=== PATIENT | female | born 1985 | race Caucasian/White ===

== ENCOUNTER → 2020-08-30 12:47 | Outpatient (BNVA) | payer OTHER, SELFPAY | PROVIDERS: PCP Internal Medicine; Visit Provider Advanced Practice Midwife ==

== ENCOUNTER 2020-11-17 19:42 | Emergency (ER) | payer OTHER, SELFPAY ==
--- NOTE | ~2020-11-17 | XR_ITS ---
EXAMINATION: XR FOOT, RIGHT CLINICAL INFORMATION: Crush injury COMPARISON: None TECHNIQUE: AP, lateral, and oblique views of the right foot. FINDINGS: The bones and soft tissues are normal. No fracture. Alignment is anatomic. Joint spaces are maintained. XR/XR foot RT 2V IMPRESSION: Normal right foot.
[2020-11-17 19:46] VITALS: BP 188/52; PULSE 67; RESP 18; TEMP 37; O2SAT 98; BMI 38.2
[2020-11-17 20:54] VITALS: BP 137/57; PULSE 62; RESP 18; TEMP 36.7; O2SAT 98
--- NOTE | 2020-11-17 21:31 | ED_ITS ---
HPI - Extremity Injury (Lower) General Chief Complaint: Extremity Injury, Lower Stated Complaint: dropped weight on right foot Time Seen by Provider: 11/17/20 21:30 Source: patient Mode of arrival: ambulatory Limitations: no limitations History of Present Illness HPI Narrative: Patient is a 35-year-old female no significant past medical history who presents after dropping an 80 lb weight on her right foot this oralia acosta. 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 She was able to ambulate all day on it with some limping. She did use some ice. She says it is now tender and swollen. Related Data Allergies Allergy/AdvReac Type Severity Reaction Status Date / Time No Known Allergies Allergy Verified 11/17/20 19:46 Review of Systems Review of Systems: Yes all other systems are reviewed and are negative [facility] Past Medical History Surgical History Hx of section Family History Family History Maternal Aunt History of breast cancer Social History Social History Alcohol intake: current Alcohol intake frequency: a few times a month Patient Tobacco Use Status: Never used Tobacco Advance Directives: No Advance Directives Information Provided: Yes Patient : No Physical Exam Vital Signs: Vital Signs: Last Vital Signs Temp 98.0 F 11/17/20 20:54 Pulse 62 11/17/20 20:54 Resp 18 11/17/20 20:54 BP 137/57 L 11/17/20 20:54 Pulse Ox 98 11/17/20 20:54 Body Mass Index 38.2 Const: General: cooperative, healthy appearing, comfortable, no acute distress and well developed Nutritional Appearance: average body habitus Orientation/consciousness: patient oriented x3 Eyes: General: appearance normal, both eyes and all related structures Resp: Effort & Inspection: normal respiratory effort and able to speak in complete sentences Neuro: General: patient oriented x3 Extrem: Other: Right lower extremity, slightly swollen, tender to palpation along the forefoot. No ecchymosis, lacerations or signs of infection on the right foot. Ankle joint full range of motion, no lacerations or ecchymosis or signs of infection. Toes NVI, slightly tender to palpation, no ecchymosis, lacerations or signs of infection noted on the right toes. Discharge Plan Discharge Clinical Impression: Contusion of foot Qualifiers: Encounter type: initial encounter Laterality: right Qualified Code(s): S90.31XA - Contusion of right foot, initial encounter Patient Disposition: Home, Self-Care Instructions: Foot Contusion (ED) Additional Instructions: As discussed, rest your but, you may use ice, elevation, it should feel better in a couple of weeks. If you notice bruising starting to develop, you can use heat his that will help the bruising go away a little bit faster. The x-ray today showed no fracture or dislocation. If your pain persists and does not get better over the next week or to, please follow-up with your primary care doctor.
== END 2020-11-17 21:34 | disposition home or self-care (01) ==
PROVIDERS: Emergency Provider Internal Medicine
DX: S90.31XA Contusion of right foot, initial encounter (principal); M79.671 Pain in right foot; Y29.XXXA Contact with blunt object, undetermined intent, initial encounter; Y93.9 Activity, unspecified; Y92.9 Unspecified place or not applicable; Y99.9 Unspecified external cause status
CPT/HCPCS: 73620; 99283

== ENCOUNTER 2020-12-03 08:23 | Outpatient (REF) | payer OTHER, SELFPAY ==
[2020-12-04 13:35] LABS: CT PCR NOT DETECTED (Not Detect.); NG PCR NOT DETECTED (Not Detect.)
[2020-12-04 14:13] LABS: BV Int Neg Control Negative (Negative); BV Int Pos Control Positive (Positive)
== END 2020-12-03 08:24 | disposition home or self-care (01) ==
LOC: HO.LAB 08:23
PROVIDERS: Visit Provider Advanced Practice Midwife
DX: N89.8 Other specified noninflammatory disorders of vagina (principal); N94.9 Unspecified condition associated with female genital organs and menstrual cycle; Z20.2 Contact with and (suspected) exposure to infections with a predominantly sexual mode of transmission
CPT/HCPCS: 81025; 87480; 87491; 87510; 87591; 87660

== ENCOUNTER 2020-12-07 13:27 | Outpatient (REF) | payer OTHER, SELFPAY ==
[2020-12-07 15:43] LABS: HCG Quantitative 723 mIU/mL
== END 2020-12-07 13:28 | disposition home or self-care (01) ==
LOC: HO.LAB 13:27
PROVIDERS: Visit Provider Advanced Practice Midwife
DX: O20.0 Threatened abortion (principal)
CPT/HCPCS: 36415; 84702

== ENCOUNTER → 2020-12-08 08:48 | Outpatient (BNVA) | payer OTHER, SELFPAY | PROVIDERS: Visit Provider Advanced Practice Midwife | DX: N92.6 Irregular menstruation, unspecified (principal); Z64.0 Problems related to unwanted pregnancy; Z87.59 Personal history of other complications of pregnancy, childbirth and the puerperium | CPT/HCPCS: 81025 ==

== ENCOUNTER 2021-03-26 14:28 | Outpatient (REF) | payer OTHER, SELFPAY ==
[2021-03-26 16:11] LABS: Binax Internal Control QC Valid; Binax Lot number: 9864; Binax Now Covid-19 Ag Negative (Negative)
== END 2021-03-26 14:29 | disposition home or self-care (01) ==
LOC: HO.LAB 14:28
PROVIDERS: Visit Provider Internal Medicine
DX: Z20.822 Contact with and (suspected) exposure to COVID-19 (principal)
CPT/HCPCS: 36415; C9803

== ENCOUNTER 2021-12-06 11:52 | Outpatient (REF) | payer OTHER, SELFPAY ==
[2021-12-06 17:23] LABS: CT PCR NOT DETECTED (Not Detect.); NG PCR NOT DETECTED (Not Detect.)
[2021-12-07 15:50] LABS: BV Int Neg Control Negative (Negative); BV Int Pos Control Positive (Positive)
[2021-12-11 23:37] LABS: HPV 16 RNA NOT DETECTED (NOT DETECTED); HPV mRNA E6/E7 rflx Detected (Not Detected)
== END 2021-12-06 11:53 | disposition home or self-care (01) ==
LOC: HO.LNP 11:52
PROVIDERS: Visit Provider Advanced Practice Midwife
DX: Z01.411 Encounter for gynecological examination (general) (routine) with abnormal findings (principal); Z11.51 Encounter for screening for human papillomavirus (HPV); N93.9 Abnormal uterine and vaginal bleeding, unspecified
CPT/HCPCS: 87480; 87491; 87510; 87591; 87624; 87625; 87660; 88142

== ENCOUNTER 2021-12-27 10:16 | Outpatient (REF) | payer OTHER, SELFPAY | END 2021-12-27 10:17 | disposition home or self-care (01) | LOC: HO.LNP 10:16 | PROVIDERS: Visit Provider Obstetrics & Gynecology | DX: Z32.02 Encounter for pregnancy test, result negative (principal); B97.7 Papillomavirus as the cause of diseases classified elsewhere | CPT/HCPCS: 57454; 81025; 88305 ==

== ENCOUNTER 2022-01-23 11:00 | Outpatient (REF) | payer OTHER, SELFPAY ==
--- NOTE | ~2022-01-23 | US_ITS ---
EXAMINATION: US PELVIS CLINICAL INFORMATION: Abnormal uterine and vaginal bleeding COMPARISON: Previous pelvic ultrasound January 2019 TECHNIQUE: Ultrasound of the pelvis is performed using both transabdominal and transvaginal transducers along with Doppler. Transvaginal imaging is performed due to inadequate visualization transabdominally. FINDINGS: The uterus is anteverted and retroflexed and measures 10.7 x 4.9 x 5.9 cm in dimension. No focal uterine lesion. Endometrial thickness is normal measuring 0.7 to 0.8 cm. The right ovary measures 3.4 x 2.8 x 2.7 cm. The left ovary measures 3.1 x 2.4 x 2.2 cm. The ovaries are normal-appearing. There is no fluid in the pelvis. US/US pelvic and transvaginal IMPRESSION: Unremarkable exam.
[2022-01-23 12:59] LABS: Hematocrit 38.6 % (37.0-47.0); Hemoglobin 12.9 g/dl (12.0-16.0); Mean Corpuscular HGB Conc 33.4 g/dl (31.0-35.0); Mean Corpuscular Volume 83.7 fL (80.0-98.0); Mean Platelet Volume 12.7 fL (9.4-12.3); Platelet Count 195 X10*3/uL (160-400); Red Blood Count 4.61 X10*6/uL (4.20-5.50); White Blood Count 7.9 X10*3/uL (4.8-10.8)
[2022-01-23 13:44] LABS: Thyroid Stimulating Hormone 1.69 uIU/mL (0.32-4.0)
== END 2022-01-23 11:01 | disposition home or self-care (01) ==
LOC: HO.US 11:00
PROVIDERS: Visit Provider Advanced Practice Midwife
DX: N93.9 Abnormal uterine and vaginal bleeding, unspecified (principal); N92.1 Excessive and frequent menstruation with irregular cycle
CPT/HCPCS: 36415; 76830; 76856; 84443; 85027

== ENCOUNTER → 2022-02-06 09:57 | Outpatient (BNVA) | payer OTHER, SELFPAY | PROVIDERS: Visit Provider Advanced Practice Midwife | DX: Z32.02 Encounter for pregnancy test, result negative (principal); Z30.011 Encounter for initial prescription of contraceptive pills; N93.9 Abnormal uterine and vaginal bleeding, unspecified; Z71.2 Person consulting for explanation of examination or test findings | CPT/HCPCS: 81025 ==

== ENCOUNTER 2022-04-23 15:11 | Emergency (ER) | payer OTHER, SELFPAY ==
--- NOTE | ~2022-04-23 | XR_ITS ---
EXAMINATION: XR SOFT TISSUE NECK CLINICAL INDICATION: Question foreign body. Feels something stuck in throat bleeding. COMPARISON: None TECHNIQUE: 2 views of the soft tissue neck were obtained. FINDINGS: Soft tissue films of the neck demonstrate a normal larynx, pharynx and upper trachea. No soft tissue swelling or opaque foreign body is demonstrated. Mild cervical spondylosis at C5-C6. XR/XR soft tissue neck IMPRESSION: 1. No radiopaque foreign body identified. 2. Mild cervical spondylosis at C5-C6.
--- NOTE | 2022-04-23 15:32 | ED_ITS ---
HPI - URI/Sore Throat General Chief Complaint: General Medical <Ninoska Leon CNP - Last Filed: 04/23/22 15:35> Stated Complaint: sharp pain throat <Ninoska Leon CNP - Last Filed: 04/23/22 15:35> Time Seen by Provider: 04/23/22 15:51 <Ninoska Leon CNP - Last Filed: 04/23/22 15:35> Source: patient <Sera Talavera NP - Last Filed: 04/23/22 18:43> Mode of arrival: ambulatory <Sera Talavera NP - Last Filed: 04/23/22 18:43> Limitations: no limitations <MARYAN Gordon Last Filed: 04/23/22 18:43> History of Present Illness HPI Narrative: 37-year-old female previously healthy who presents with complaints of discomfort and the left side of her throat after eating a Caesar salad and chili from [employer]. Patient feels like something is stuck in her throat. She is able to swallow, eat and drink with no difficulty. Patient denies any of these symptoms prior to eating <Sera Talavera NP - Last Filed: 04/23/22 18:43> Related Data Home Medications: Previous Rx's Medication Instructions Recorded desogestrel 0.15 mg-ethinyl 1 tab PO DAILY #28 tabs 02/06/22 estradiol 0.03 mg tablet (Apri) <Ninoska Leon CNP - Last Filed: 04/23/22 15:35> Allergies/Adverse Reactions: Allergies Allergy/AdvReac Type Severity Reaction Status Date / Time No Known Allergies Allergy Verified 02/06/22 10:14 <Ninoska Leon CNP - Last Filed: 04/23/22 15:35> Review of Systems Review of Systems: Yes all other systems are reviewed and are negative <MARYAN Gordon Last Filed: 04/23/22 18:43> Constitutional: Constitutional: Reports no additional constitutional complaints, Denies body ache(s), Denies chills, Denies fever(s), Denies headache(s) and Denies weakness <Sera Talavera NP - Last Filed: 04/23/22 18:43> Eyes: Eyes: Reports no additional eye complaints and Denies change in vision <Sera Talavera AERONAUTICAL ENGINEERING OFFICER - Last Filed: 04/23/22 18:43> ENT: Reports system reviewed and no additional complaints, except as documented, Denies dizziness, Denies headache(s), Denies nasal congestion, Denies nasal discharge, Denies neck pain and Reports sore throat <Sera Talavera AERONAUTICAL ENGINEERING OFFICER - Last Filed: 04/23/22 18:43> Cardiovascular: Cardiovascular: Reports no additional cardiovascular complaints, Denies chest pain, Denies leg edema and Denies dyspnea <Sera Talavera AERONAUTICAL ENGINEERING OFFICER - Last Filed: 04/23/22 18:43> Respiratory: Respiratory: Reports no additional respiratory complaints, Denies cough and Denies dyspnea <Sera Talavera AERONAUTICAL ENGINEERING OFFICER - Last Filed: 04/23/22 18:43> Gastrointestinal: Gastrointestinal: Reports no additional gastrointestinal complaints, Denies abdominal pain, Denies diarrhea, Denies nausea and Denies vomiting <Sera Talavera AERONAUTICAL ENGINEERING OFFICER - Last Filed: 04/23/22 18:43> Genitourinary: Genitourinary: Reports no additional female genitourinary complaints and Denies urinary incontinence <Sera Talavera AERONAUTICAL ENGINEERING OFFICER - Last Filed: 04/23/22 18:43> Musculoskeletal: Musculoskeletal: Reports no additional musculoskeletal complaints, Denies back pain, Denies arthralgias, Denies joint swelling, Denies neck pain, Denies numbness and Denies tingling <Sera Talavera AERONAUTICAL ENGINEERING OFFICER - Last Filed: 04/23/22 18:43> Integumentary/Breasts: Skin/Breast: Reports system reviewed and no additional complaints, except as docu and Denies rash <Sera Talavera AERONAUTICAL ENGINEERING OFFICER - Last Filed: 04/23/22 18:43> Neurologic: Reports system reviewed and no additional complaints, except as documented, Denies dizziness, Denies headache(s), Denies numbness, Denies tingling and Denies weakness <Sera Talavera AERONAUTICAL ENGINEERING OFFICER - Last Filed: 04/23/22 18:43> PMFSH Past Medical History Attestation statement: The following information was validated with the patient. <Sera Talavera NP - Last Filed: 04/23/22 18:43> Source: old records reviewed and nursing notes reviewed <Sera Talavera NP - Last Filed: 04/23/22 18:43> Medical History: Medical History Abnormal Pap smear of cervix <Ninoska Leon CNP - Last Filed: 04/23/22 15:35> Surgical History: Surgical History H/O LEEP Hx of section <Ninoska Leon CNP - Last Filed: 04/23/22 15:35> Family History Family History: Family History Maternal Aunt History of breast cancer <Ninoska Leon CNP - Last Filed: 04/23/22 15:35> Social History Social History: Social History Alcohol intake: current Alcohol intake frequency: a few times a month Patient Tobacco Use Status: Never used Tobacco Advance Directives: No Advance Directives Information Provided: Yes Sexual orientation: Straight/Heterosexual Gender identity: Female <Ninoska Leon CNP - Last Filed: 04/23/22 15:35> Physical Exam Vital Signs: Vital Signs: Last Vital Signs Temp 98.2 F 04/23/22 15:33 Pulse 59 04/23/22 15:33 Resp 18 04/23/22 15:33 BP 115/68 04/23/22 15:33 Pulse Ox 99 04/23/22 15:33 O2 Del Method 04/23/22 15:33 BMI result Body Mass Index 40.3 <Ninoska Leon CNP - Last Filed: 04/23/22 15:35> Vital Signs: Last Vital Signs Temp 98.2 F 04/23/22 15:33 Pulse 59 04/23/22 15:33 Resp 18 04/23/22 15:33 BP 115/68 04/23/22 15:33 Pulse Ox 99 04/23/22 15:33 O2 Del Method 04/23/22 15:33 BMI result Body Mass Index 40.3 <Sera Talavera NP - Last Filed: 04/23/22 18:43> Const: General: cooperative, healthy appearing, comfortable and no acute distress <Sera Talavera NP - Last Filed: 04/23/22 18:43> Orientation/consciousness: patient oriented x3 <Sera Talavera NP - Last Filed: 04/23/22 18:43> Limitations: no limitations <Sera Talavera NP - Last Filed: 04/23/22 18:43> HEENT: Head: Yes normal to inspection <Sera Talavera NP - Last Filed: 04/23/22 18:43> Ears: hearing grossly normal bilaterally and TM's normal bilaterally <Sera Talavera NP - Last Filed: 04/23/22 18:43> General nose exam: Normal external nose present <Sera Talavera NP - Last Filed: 04/23/22 18:43> Face and sinus: Yes normal facial exam <Sera Talavera NP - Last Filed: 04/23/22 18:43> Mouth: Normal oral and palatal mucosa present <Sera Talavera NP - Last Filed: 04/23/22 18:43> Throat: Yes posterior oropharynx normal, Yes uvula midline and Yes other (The right tonsil is normal.To the left tonsil slight erythema w/ no exudate) <Sera Talavera NP - Last Filed: 04/23/22 18:43> Eyes: General: appearance normal, both eyes and all related structures <Sera Talavera NP - Last Filed: 04/23/22 18:43> Pupils: Equal, round and reactive pupils present <Sera Talavera NP - Last Filed: 04/23/22 18:43> Neck: Other: No stridor. No palpable mass. <Sera Talavera NP - Last Filed: 04/23/22 18:43> Neck: Yes normal visual inspection, Yes full ROM and Yes no lymphadenopathy <Sera Talavera AERONAUTICAL ENGINEERING OFFICER - Last Filed: 04/23/22 18:43> Chest: Chest palpation & inspection: normal inspection of the chest <Sera Talavera AERONAUTICAL ENGINEERING OFFICER - Last Filed: 04/23/22 18:43> Resp: Effort & Inspection: normal respiratory effort <Sera Talavera AERONAUTICAL ENGINEERING OFFICER - Last Filed: 04/23/22 18:43> Auscultation: clear to auscultation bilaterally <Sera Talavera AERONAUTICAL ENGINEERING OFFICER - Last Filed: 04/23/22 18:43> Cardio: Rate: regular rate <Sera Talavera AERONAUTICAL ENGINEERING OFFICER - Last Filed: 04/23/22 18:43> Rhythm: regular rhythm <Sera Talavera AERONAUTICAL ENGINEERING OFFICER - Last Filed: 04/23/22 18:43> Peripheral pulses: Peripheral pulses 2+ throughout <Sera Talavera AERONAUTICAL ENGINEERING OFFICER - Last Filed: 04/23/22 18:43> GI: Inspection: Yes normal to inspection <Sera Talavera AERONAUTICAL ENGINEERING OFFICER - Last Filed: 04/23/22 18:43> Skin: General skin exam: no rashes or lesions noted <Sera Talavera AERONAUTICAL ENGINEERING OFFICER - Last Filed: 04/23/22 18:43> Neuro: General: patient oriented x3 and moves all extremities <Sera Talavera AERONAUTICAL ENGINEERING OFFICER - Last Filed: 04/23/22 18:43> Cranial nerves: Yes Equal, round and reactive pupils present <Sera Talavera AERONAUTICAL ENGINEERING OFFICER - Last Filed: 04/23/22 18:43> Cognition (Neuro): normal cognition <Sera Talavera AERONAUTICAL ENGINEERING OFFICER - Last Filed: 04/23/22 18:43> Gait exam (Neuro): Normal gait present <Sera Talavera AERONAUTICAL ENGINEERING OFFICER - Last Filed: 04/23/22 18:43> Extrem: General: Yes normal to inspection <Sera Talavera AERONAUTICAL ENGINEERING OFFICER - Last Filed: 04/23/22 18:43> Course Course Course Narrative: This is an RME: Additional HPI, ROS, PE not included below will be deferred to primary provider. Patient is a 37-year-old female who presents to the emergency department, reports sudden onset of throat pain, poking sensation, and foreign body sensation to back of throat after eating chili today. States side of her throat she appears to some sort of scratch, is concerned that she may have swallowed something while eating. Denies shortness of breath. Plan: viral testing, strep testing. <Ninoska Leon CNP - Last Filed: 0 04/23/22 15:35> Reevaluation(s) Reevaluation #1: Viral testing including strep all negative. X-ray of the soft tissue of the neck shows no acute foreign body. Patient tolerating p.o. with no difficulty. Plan for discharge home with recommendations to increase fluids and follow up with primary care as needed. Reviewed worrisome signs and symptoms of when to return to the emergency room. Comfortable plan for discharge home. <Sera Talavera NP - Last Filed: 04/23/22 18:43> Medications Administered Discontinued Medications Generic Name Dose Route Start Last Admin Trade Name Freq PRN Reason Stop Dose Admin Al Hydroxide/Mg Hydroxide 30 ml 04/23/22 16:11 04/23/22 16:24 Magnesium Hydrox/Alum Hydrox 30 Ml Oral.Susp PO 04/23/22 16:12 30 ml ONCE ONE Administration Lidocaine HCl 15 ml 04/23/22 16:11 04/23/22 16:24 Lidocaine Hcl Viscous 2 % 15 Ml Solution MUCOUS MEM 04/23/22 16:12 15 ml ONCE ONE Administration <Ninoska Leon CNP - Last Filed: 04/23/22 15:35> Medications Administered Discontinued Medications Generic Name Dose Route Start Last Admin Trade Name Freq PRN Reason Stop Dose Admin Al Hydroxide/Mg Hydroxide 30 ml 04/23/22 16:11 04/23/22 16:24 Magnesium Hydrox/Alum Hydrox 30 Ml Oral.Susp PO 04/23/22 16:12 30 ml ONCE ONE Administration Lidocaine HCl 15 ml 04/23/22 16:11 04/23/22 16:24 Lidocaine Hcl Viscous 2 % 15 Ml Solution MUCOUS MEM 04/23/22 16:12 15 ml ONCE ONE Administration <Sera Talavera NP - Last Filed: 04/23/22 18:43> Medical Decision Making Medical Decision Making MDM Narrative: 37-year-old female here with left-sided throat discomfort after eating salad and chilly just prior to arrival. Patient with a sensation of foreign body. Patient tolerating secretions with no difficulty swallowing or drooling noted. On exam patient with mild erythema to the left tonsil with no exudate or swelling noted. Uvula is midline. No stridor on exam. No palpable foreign body. Patient tolerating secretions and swallowing with no difficulty. Low concern for food impaction. Likely irritant from abrasion food source vs small food particle. Offered supportive care and reassurance that both are benign and will resolved w/o intervention. Patient quite insistent she have soft tissue x-ray although I explained to her several times that this will likely be negative. I do not believe it is necessary but patient would like imaging. Patient had viral testing done in triage as well as strep testing. Tolerated maalox/viscous lidocaine in the ER with no difficulty. <Sera Talavera NP - Last Filed: 04/23/22 18:43> Differential Diagnosis Differential Diagnoses: The differential diagnosis associated with the presentation includes <Sera Talavera NP - Last Filed: 04/23/22 18:43> less likely food impaction-patient tolerating PO and secretions with no difficulty Consider abrasion, <Sera Talavera NP - Last Filed: 04/23/22 18:43> Lab Data MDM Lab Attestation statement: I reviewed the patient's lab results. <Sera Talavera NP - Last Filed: 04/23/22 18:43> Labs: Lab Results 04/23/22 04/23/22 Range/Units 15:47 15:47 Influenza Type A (PCR) NEGATIVE (Negative) Influenza Type B (PCR) NEGATIVE (Negative) RSV RNA Qual (PCR) NEGATIVE (Negative) SARS-CoV-2 RNA (RT-PCR) NEGATIVE (Negative) S. pyogenes GrpA CYNDEE Negative (Negative) <Ninoska Leon CNP - Last Filed: 04/23/22 15:35> Lab Results 04/23/22 04/23/22 Range/Units 15:47 15:47 Influenza Type A (PCR) NEGATIVE (Negative) Influenza Type B (PCR) NEGATIVE (Negative) RSV RNA Qual (PCR) NEGATIVE (Negative) SARS-CoV-2 RNA (RT-PCR) NEGATIVE (Negative) S. pyogenes GrpA CYNDEE Negative (Negative) <Sera Talavera NP - Last Filed: 04/23/22 18:43> Independent Interpretation I performed an independent interpretation of an: Plain X-Ray <Sera Talavera NP - Last Filed: 04/23/22 18:43> Interpretation: Independently reviewed the x-ray of the soft tissue which shows no acute foreign body and I agree with the radiologist's reading <Sera Talavera NP - Last Filed: 04/23/22 18:43> Radiology Impression Discussion of test interpretation with radiology: I have reviewed the radiologist's reading. <Sera Talavera NP - Last Filed: 04/23/22 18:43> Radiologist Impression: Launch?Image [place] [address] XRay Report Signed Patient: Keily Roldan MR#: [id number] : 1985 Acct:[id number] Age/Sex: 37 / F ADM Date: 04/23/22 Loc: .ED Attending Dr: Ordering Physician: Sera Díaz NP Date of Service: 04/23/22 Procedure(s): XR soft tissue neck Accession Number(s): [id number] cc: Sera Díaz NP~ EXAMINATION: XR SOFT TISSUE NECK CLINICAL INDICATION: Question foreign body. Feels something stuck in throat bleeding. COMPARISON: None TECHNIQUE: 2 views of the soft tissue neck were obtained.? FINDINGS: Soft tissue films of the neck demonstrate a normal larynx, pharynx and upper trachea. No soft tissue swelling or opaque foreign body is demonstrated. Mild cervical spondylosis at C5-C6. XR/XR soft tissue neck IMPRESSION: 1.? No radiopaque foreign body identified. 2.? Mild cervical spondylosis at C5-C6. ? <Sera Talavera NP - Last Filed: 04/23/22 18:43> Discharge Plan Discharge Clinical Impression: Throat discomfort, Neck discomfort <Ninoska Leon CNP - Last Filed: 04/23/22 15:35> Patient Disposition: Home, Self-Care <Ninoska Leon CNP - Last Filed: 04/23/22 15:35> Instructions: Neck Pain (ED) <Ninoska Leon CNP - Last Filed: 04/23/22 15:35> Additional Instructions: You did have testing for flu, covid, rsv and strep which are all negative Your x-ray of your soft tissue of your neck shows no foreign body Please increase fluids at home. Expect some slight discomfort. This should impr ove in the next day or two. Return for difficulty swallowing fluids, difficulty breathing <Ninoska Leon CNP - Last Filed: 04/23/22 15:35> Prescriptions: No Action desogestrel-ethinyl estradiol [Apri] 0.15-0.03 mg tablet 1 tab PO DAILY Qty: 28 4RF <Ninoska Leon CNP - Last Filed: 04/23/22 15:35> Referrals: Physician,Unknown J [Primary Care Provider] - <Ninoska Leon CNP - Last Filed: 04/23/22 15:35>
[2022-04-23 15:33] VITALS: BP 115/68; PULSE 59; RESP 18; TEMP 36.8; O2SAT 99; BMI 40.3
[2022-04-23 16:00] LABS: IDNOW Serial# 6674DD1D; Strep A Nucleic Acid Negative (Negative)
[2022-04-23] MEDS: Magnesium Hydrox/Alum Hydrox 30 ML ORAL.SUSP PO (16:24)
[2022-04-23] MEDS: Lidocaine HCl Viscous 2 % 15 ML SOLUTION MUCOUS MEM (16:24)
[2022-04-23 16:28] LABS: Influenza A PCR NEGATIVE (Negative); Influenza B PCR NEGATIVE (Negative); Resp Syncy Virus RNA Qual PCR NEGATIVE (Negative); SARS COV2 PCR INHOUSE NEGATIVE (Negative)
== END 2022-04-23 18:55 | disposition home or self-care (01) ==
PROVIDERS: Nurse Practitioner Family; Emergency Provider Student in an Organized Health Care Education/Training Program
DX: R07.0 Pain in throat (principal); M54.2 Cervicalgia; R51.9 Headache, unspecified; Z20.822 Contact with and (suspected) exposure to COVID-19; Z20.828 Contact with and (suspected) exposure to other viral communicable diseases; Z79.899 Other long term (current) drug therapy
CPT/HCPCS: 0241U; 70360; 87651; 99283

== ENCOUNTER → 2022-06-05 10:17 | Outpatient (BNVA) | payer OTHER, SELFPAY | PROVIDERS: Visit Provider Advanced Practice Midwife | DX: Z13.89 Encounter for screening for other disorder (principal) ==

== ENCOUNTER 2022-07-24 10:06 | Outpatient (REF) | payer OTHER, SELFPAY | END 2022-07-24 10:07 | disposition home or self-care (01) | LOC: HO.LAB 10:06 | PROVIDERS: Visit Provider Advanced Practice Midwife | DX: N93.9 Abnormal uterine and vaginal bleeding, unspecified (principal) | CPT/HCPCS: 58100; 81025; 88305 ==

== ENCOUNTER → 2022-07-27 11:28 | Outpatient (BNVA) | payer OTHER, SELFPAY | PROVIDERS: Visit Provider Advanced Practice Midwife ==

== ENCOUNTER 2022-09-19 11:34 | Outpatient (REF) | payer OTHER, SELFPAY ==
[2022-09-19 15:47] LABS: CT PCR NOT DETECTED (Not Detect.); NG PCR NOT DETECTED (Not Detect.)
[2022-09-20 09:46] LABS: BV Int Neg Control Negative (Negative); BV Int Pos Control Positive (Positive)
== END 2022-09-19 11:35 | disposition home or self-care (01) ==
LOC: HO.LAB 11:34
PROVIDERS: Visit Provider Advanced Practice Midwife
DX: N76.0 Acute vaginitis (principal); Z20.2 Contact with and (suspected) exposure to infections with a predominantly sexual mode of transmission
CPT/HCPCS: 0353U; 87480; 87510; 87660

== ENCOUNTER 2022-09-19 11:48 | Outpatient (REF) | payer OTHER, SELFPAY | END 2022-09-19 11:49 | disposition home or self-care (01) | LOC: HO.LNP 11:48 | PROVIDERS: Visit Provider Advanced Practice Midwife | DX: Z13.89 Encounter for screening for other disorder (principal) ==

== ENCOUNTER 2022-10-03 10:24 | Outpatient (AMB) | payer OTHER, SELFPAY ==
[2022-10-03 10:41] VITALS: BP 118/76; BMI 37.0
--- NOTE | 2022-10-03 10:41 | A.OFFVIS_ITS ---
Intake Vital Signs 10/03/22 10:41 Height 5 ft 6 in Weight 229 lb BMI 37.0 BP 118/76 Intake Visit Reasons: control consult(wants pill) Intake Note: The patient agreed to use of a medical technologist hematology during this encounter. Scribed for PK Melendez by Harper Diaz medical technologist hematology, on 10/03/2022 at 10:50 am EST. Allergies No Known Allergies Allergy (Verified 10/03/22 10:42) Is last menstrual period known: Yes Last menstrual period: 10/03/22 HPI HPI Comments History of Present Illness Details She is here today for BC consult and is interested in OCP's. Is currently on menses today. She has used Apri BC in the past for short period of time, tended to forget the pill. Not interested in the Nuvaring or IUD. Patient denies any contraindications to control such as tobacco use, migraines with aura, high blood pressure, liver disease, blood clotting disorders JAIME+, DVT, and Lupus. She denies smoking. Reports treating for BV, but has recently feeling vaginal irritation over the last 2 days. [facility] Medical History Abnormal Pap smear of cervix BV (bacterial vaginosis) Surgical History H/O LEEP Hx of section Family History Maternal Aunt History of breast cancer Social History Alcohol intake: current Alcohol intake frequency: a few times a month Patient Tobacco Use Status: Never used Tobacco Sexual orientation: Straight/Heterosexual Gender identity: Female Female Reproductive History Menstrual Age of Menarche: 10 Date of last menstrual period: 10/03/22 Physical Exam Vital Signs: Last Vital Signs BP 118/76 10/03/22 10:41 BMI result Body Mass Index 37.0 Const General: cooperative, healthy appearing, comfortable, no acute distress, well developed, alert and awake Assessment & Plan Assessment & Plan (1) control counseling: Code(s): Z30.09 - Encounter for other general counseling and advice on contraception Plan: Discussed: Reviewed use, side effects and warning of OCP, including ACHES. Instructions were given to use a back up method for contraception for 7 days. Always use condoms for STD prevention. Instructed patient to take for at least 2-3 months for her body to get acclimated to it. Recommended she take pill at same time every day with food to prevent stomach upset. If she starts missing doses, she may consider switching from OCP. Instructed to use back up method for the length of the pack if she mi sses more than one dose. She will monitor her bleeding and contact the office with any concerns. She was instructed to go to ER if she develops loss of vision, severe headache that does not resolve, chest pain, difficulty breathing, abdominal pain, or severe pain or tenderness in extremity. She will call the office with any concerns. Rx sent to pharmacy. Instructed patient to start OCP within the first 5 days of her period. Return in 3 months for pill check. RX sent for vaginal irritation. Boric acid protocol reviewed. All of her questions and concerns were addressed to the best of my ability and shared decision making. She is agreeable to plan of care. (2) Vaginal irritation: Code(s): N89.8 - Other specified noninflammatory disorders of vagina Medications: New metronidazole 500 mg PO Q12H 14 tabs 0RF 7 days Coding Level of Care Code Est Pt Level 3 (29408) Diagnoses control counseling Z30.09 Vaginal irritation N89.8
== END 2022-10-03 14:30 | disposition home or self-care (01) ==
LOC: HO.HWS 10:24
PROVIDERS: Visit Provider Advanced Practice Midwife
DX: Z30.09 Encounter for other general counseling and advice on contraception (principal); N89.8 Other specified noninflammatory disorders of vagina
CPT/HCPCS: 99213

== ENCOUNTER → 2022-10-03 10:24 | Outpatient (BNVA) | payer OTHER, SELFPAY | PROVIDERS: Visit Provider Advanced Practice Midwife ==

== ENCOUNTER 2022-12-08 08:16 | Outpatient (AMB) | payer OTHER, SELFPAY ==
[2022-12-08 08:24] VITALS: BP 118/66; BMI 34.7
--- NOTE | 2022-12-08 08:24 | A.OFFVIS_ITS ---
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 Doing well with no registered respiratory technician concerns. She attempts to eat healthy and stays active with exercise. Currently sexually active,recently new intimate partner. Uses Apri for BC. Regular monthly periods that have gotten rn cvicu since starting OCP. Denies vaginal itching and irritation. STD screening offered; she accepts. Last pap smear 2021. Patient denies any contraindications to control such as tobacco use, migraines with aura, high blood pressure, liver disease, blood clotting disorders, DVT and PE. [facility], [facility] Medical History BV (bacterial vaginosis) Abnormal Pap smear of cervix Surgical History H/O LEEP Hx of section Family History (Updated 12/08/22 @ 08:38 by Amy Newsome) Maternal Aunt History of breast cancer Sister Diabetes Maternal Grandfather Diabetes Maternal Grandmother Diabetes Social History Household Members: Children Housing: House Alcohol intake: current Alcohol intake frequency: a few times a month Patient Tobacco Use Status: Never used Tobacco Current occupational status: employed Current occupation: [employer] Sexual orientation: Straight/Heterosexual Gender identity: Female Female Reproductive History Menstrual Age of Menarche: 10 control method: pills Total pregnancies: 4 Full term: 2 Number of Living Children: 2 Ab induced: 1 Ectopics: 1 Date of last pap smear: 12/08/21 Review of Systems Const All systems reviewed & are unremarkable except as noted in HPI and below Physical Exam Vital Signs: Last Vital Signs BP 118/66 12/08/22 08:24 BMI result Body Mass Index 34.7 Const General: cooperative, healthy appearing, no acute distress, well developed and alert Orientation/consciousness: patient oriented x3 HEENT Head: Yes normal to inspection Eyes General: appearance normal, both eyes and all related structures Neck Neck: Yes normal visual inspection Thyroid: Thyroid normal Chest Chest palpation & inspection: normal inspection of the chest Breast/axilla inspection: normal inspection of the breasts (no puckering, dimpling, peau de orange, retraction, discharge, masses) Breast/axilla palpation: normal palpation of the breasts Resp Effort & Inspection: normal respiratory effort GI Inspection: Yes normal to inspection Palpation (GI): Soft to palpation Rectal Exam - Female: deferred General: Yes bladder normal to palpation External Female Exam: normal external appearance and normal appearance of the urethra Speculum Exam - Vagina: normal appearance of the vagina, normal palpation and normal vaginal discharge Speculum Exam - Cervix: normal appearance of the cervix (Post LEEP appearance), normal palpation and Other cervical findings present (bled with pap) Bimanual exam- vagina & uterus: normal bimanual exam, normal palpation, uterine size normal, bladder normal to palpation and normal palpation Bimanual Exam- Adnexa, other: normal adnexae and no masses Skin General skin exam: no rashes or lesions noted Neuro General: patient oriented x3 Cognition (Neuro): normal cognition Extrem General: Yes normal to inspection Psych Attitude: cooperative Thought process: Normal thought process present Assessment & Plan Assessment & Plan (1) Encounter for annual routine gynecological examination: Code(s): Z01.419 - Encounter for gynecological examination (general) (routine) without abnormal findings Plan: Discussed: Current recommendations for pap smears per ASCCP guidelines. Breast awareness and periodic self breast exams. Encouraged yearly mammograms after age 40. Maintaining a healthy lifestyle including a well balanced diet and routine exercise. All of her questions and concerns were addressed to the best of my ability. RTO in one year for AG. (2) Potential exposure to STD: Code(s): Z20.2 - Contact with and (suspected) exposure to infections with a predominantly sexual mode of transmission (3) Surveillance of contraceptive pill: Code(s): Z30.41 - Encounter for surveillance of contraceptive pills Plan: Reviewed use, side effects and warning of OCP, including ACHES. She was instructed to go to ER if she develops loss of vision, severe headache that does not resolve, chest pain, difficulty breathing, abdominal pain, or severe pain or tenderness in extremity. She will call the office with any concerns. Orders: Orders Hepatitis B Core Antibody Today Z20.2 - Contact with and (suspected) exposure to infections with a predominantly sexual mode of transmission HIV Ab/Ag Today Z20.2 - Contact with and (suspected) exposure to infections with a predominantly sexual mode of transmission MM tomosynthesis screening BI Today Z12.31 - Encounter for screening mammogram for malignant neoplasm of breast Hepatitis C Antibody Today Z20.2 - Contact with and (suspected) exposure to infections with a predominantly sexual mode of transmission Syphilis Screen Today Z20.2 - Contact with and (suspected) exposure to infecti ons with a predominantly sexual mode of transmission Medications: New desogestrel-ethinyl estradiol 0.15-0.03 mg (Apri) 1 tab PO DAILY 90 tabs 4RF 90 days Coding Level of Care Code Est Pt Prev Care 18-39y(77390) Diagnoses Encounter for annual routine gynecological examination Z01.419 Potential exposure to STD Z20.2 Surveillance of contraceptive pill Z30.41
== END 2022-12-08 08:46 | disposition home or self-care (01) ==
LOC: HO.HWS 08:17
PROVIDERS: Visit Provider Advanced Practice Midwife
DX: Z01.419 Encounter for gynecological examination (general) (routine) without abnormal findings (principal); Z20.2 Contact with and (suspected) exposure to infections with a predominantly sexual mode of transmission; Z30.41 Encounter for surveillance of contraceptive pills
CPT/HCPCS: 99395

== ENCOUNTER 2022-12-08 08:16 | Outpatient (REF) | payer OTHER, SELFPAY ==
[2022-12-08 12:42] LABS: Syphilis Screen Nonreactive (Nonreactive)
[2022-12-08 16:16] LABS: CT PCR NOT DETECTED (Not Detect.); NG PCR NOT DETECTED (Not Detect.)
[2022-12-09 04:21] LABS: HBc Num1 0.19 S/CO (0.00-0.79); HIV AB/AG Nonreactive (Nonreactive); HIV Num 1 0.06 S/CO (0.00-0.99); Hepatitis B Core Antibody Nonreactive (Nonreactive); ~HepC Num1 0.06 S/CO (0.00-0.79); ~Hepatitis C Antibody Nonreactive (Nonreactive)
== END 2022-12-08 08:17 | disposition home or self-care (01) ==
LOC: HO.LAB 08:16
PROVIDERS: Visit Provider Advanced Practice Midwife
DX: Z01.419 Encounter for gynecological examination (general) (routine) without abnormal findings (principal); Z11.4 Encounter for screening for human immunodeficiency virus [HIV]; Z20.2 Contact with and (suspected) exposure to infections with a predominantly sexual mode of transmission; B97.7 Papillomavirus as the cause of diseases classified elsewhere
CPT/HCPCS: 0353U; 86704; 86780; 86803; 87389

== ENCOUNTER 2022-12-08 08:56 | Outpatient (REF) | payer OTHER, SELFPAY ==
[2022-12-13 07:28] LABS: HPV mRNA E6/E7 rflx Not Detected (Not Detected)
== END 2022-12-08 08:57 | disposition home or self-care (01) ==
LOC: HO.LNP 08:56
PROVIDERS: Advanced Practice Midwife; Visit Provider Advanced Practice Midwife
DX: Z12.4 Encounter for screening for malignant neoplasm of cervix (principal); Z11.51 Encounter for screening for human papillomavirus (HPV)
CPT/HCPCS: 87624; 88142

== ENCOUNTER → 2023-02-27 08:00 | Outpatient (BNV) | payer OTHER, SELFPAY | PROVIDERS: Visit Provider Radiology Diagnostic Radiology | DX: Z12.31 Encounter for screening mammogram for malignant neoplasm of breast (principal) | CPT/HCPCS: 77063; 77067 ==

== ENCOUNTER 2023-02-27 08:03 | Outpatient (REF) | payer OTHER, SELFPAY ==
--- NOTE | ~2023-02-27 | MM_ITS ---
EXAMINATION: MM SCREENING DIGITAL BREAST TOMOSYNTHESIS, BILATERAL CLINICAL INFORMATION: Screening. Asymptomatic. COMPARISON: Mammography: This is a baseline mammogram. TECHNIQUE: Digital breast tomosynthesis is performed in both the craniocaudal and mediolateral oblique views along with computer-aided detection (CAD). Synthesized 2D images are generated from the tomosynthesis. FINDINGS: There are scattered areas of fibroglandular density (ACR BI-RADS breast composition Category b). There are grouped calcifications in the skin of the lower inner quadrant of the right breast at a middle depth. These are benign. In the left breast, there are no significant masses, abnormal calcifications, or other abnormalities. MM/MM tomosynthesis screening BI IMPRESSION: No mammographic evidence of malignancy. ASSESSMENT: BI-RADS BI-RADS 1 - Negative RECOMMENDATION: Routine annual mammography screening. 1 year F/U This examination should not preclude the clinical evaluation of a suspicious palpable abnormality. This patient's information was entered into a reminder system with a target due date for their next mammogram.
== END 2023-02-27 08:04 | disposition home or self-care (01) ==
LOC: HO.MAMMO 08:03
PROVIDERS: Visit Provider Advanced Practice Midwife
DX: Z12.31 Encounter for screening mammogram for malignant neoplasm of breast (principal)
CPT/HCPCS: 77063; 77067

== ENCOUNTER 2023-04-03 12:43 | Outpatient (AMB) | payer OTHER, SELFPAY ==
--- NOTE | 2023-04-03 12:57 | MHC.OFFVIS ---
Intake Vital Signs 04/03/23 12:58 Height 5 ft 6 in Weight 217 lb BMI 35.0 BP 116/72 Intake Visit Reasons: ? 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 She reports increased discharge with odor. No pelvic pain. Denies urinary symptoms. LMP several weeks ago. She denies any risk to . PFSH Medical History BV (bacterial vaginosis) Abnormal Pap smear of cervix Surgical History H/O LEEP Hx of section Family History Maternal Aunt History of breast cancer Sister Diabetes Maternal Grandfather Diabetes Maternal Grandmother Diabetes Social History Household Members: Children Housing: House Alcohol intake: current Alcohol intake frequency: a few times a month Patient Tobacco Use Status: Never used Tobacco Current occupational status: employed Current occupation: [employer] Sexual orientation: Straight/Heterosexual Gender identity: Female Female Reproductive History Menstrual Age of Menarche: 10 Duration of menses: 6-7 days Date of last menstrual period: 03/19/23 control method: pills Total pregnancies: 4 Full term: 2 Review of Systems Const All systems reviewed & are unremarkable except as noted in HPI and below Physical Exam Vital Signs: Last Vital Signs BP 116/72 04/03/23 12:58 BMI result Body Mass Index 35.0 Const General: cooperative, healthy appearing and no acute distress Orientation/consciousness: patient oriented x3 GI Inspection: Yes normal to inspection Palpation (GI): Soft to palpation and Other GI palpation findings present (Nontender) Rectal Exam - Female: visual inspection normal General: Yes bladder normal to palpation External Female Exam: normal appearance of the urethra Speculum Exam - Vagina: normal appearance of the vagina, normal palpation and normal vaginal discharge (Thick, creamy, pale yellow ) Speculum Exam - Cervix: normal appearance of the cervix and normal palpation Bimanual exam- vagina & uterus: normal bimanual exam, normal palpation, uterine size normal, bladder normal to palpation, normal palpation, uterine shape normal and non-tender Bimanual Exam- Adnexa, other: normal adnexae Neuro General: patient oriented x3 Results AMB Urinalysis, Automated UA Leukoctes 0 Magalie/uL Last Edit by DENG Frankel on 04/03/23 13:47 UA Nitrite Negative Last Edit by Mayra Cordero Jacey on 04/03/23 13:47 UA Urobilinogen 0 mg/dL Last Edit by Mayra Cordero Jacey on 04/03/23 13:47 UA Protein 0.5 mg/dL Last Edit by Mayra Cordero Jacey on 04/03/23 13:47 UA pH 5.5 Last Edit by Mayra Cordero Jacey on 04/03/23 13:47 UA Blood 0 Konstantin/uL Last Edit by Mayra Cordero Jacey on 04/03/23 13:47 UA Specific [place] 1.030 Last Edit by Mayra Cordero Jacey on 04/03/23 13:47 UA Ketone Negative Last Edit by Mayra Cordero Jacey on 04/03/23 13:47 UA Bilirubin 1 mg/dL Last Edit by Mayra Cordero Jacey on 04/03/23 13:47 UA Glucose 0 mg/dL Last Edit by Mayra Cordero Jacey on 04/03/23 13:47 Results Reviewed Results Reviewed: Laboratory Last Values Urine pH (Auto) 5.5 04/03/23 13:46 Specific [place] (Auto) 1.030 04/03/23 13:46 Urine Protein (Auto) 0.5 mg/dL 04/03/23 13:46 Glucose (UA)(Auto) 0 mg/dL 04/03/23 13:46 Urine Ketones (Auto) Negative 04/03/23 13:46 Urine Blood (Auto) 0 Konstantin/uL 04/03/23 13:46 Urine Nitrite (Auto) Negative 04/03/23 13:46 Urine Bilirubin (Auto) 1 mg/dL 04/03/23 13:46 Urine Urobilinogen (Auto) 0 mg/dL 04/03/23 13:46 Leukocyte Esterase (Auto) 0 Magalie/uL 04/03/23 13:46 Assessment & Plan Assessment & Plan (1) Vaginal discharge: Code(s): N89.8 - Other specified noninflammatory disorders of vagina (2) Vaginal irritation: Code(s): N89.8 - Other specified noninflammatory disorders of vagina Plan Discuss: Use of condoms consistently. Offered STD blood work- declines. Await cultures for results and plan of care. Orders: Orders CT NG by PCR Today Z01.419 - Encounter for gynecological examination (general) (routine) without abnormal findings Bacterial Vaginosis Panel Today Z20.2 - Contact with and (suspected) exposure to infections with a predominantly sexual mode of transmission AMB Urinalysis Automated Today N94.9 - Unspecified condition associated with female genital organs and menstrual cycle Coding Level of Care Code Est Pt Level 3 (83127) Diagnoses Vaginal discharge N89.8 Vaginal irritation N89.8
[2023-04-03 12:58] VITALS: BP 116/72; BMI 35.0
== END 2023-04-03 14:26 | disposition home or self-care (01) ==
PROVIDERS: Visit Provider Advanced Practice Midwife
DX: N89.8 Other specified noninflammatory disorders of vagina (principal); N94.9 Unspecified condition associated with female genital organs and menstrual cycle
CPT/HCPCS: 99213

== ENCOUNTER 2023-04-03 12:43 | Outpatient (REF) | payer OTHER, SELFPAY ==
[2023-04-03 16:33] LABS: CT PCR NOT DETECTED (Not Detect.); NG PCR NOT DETECTED (Not Detect.)
[2023-04-04 09:53] LABS: BV Int Neg Control Negative (Negative); BV Int Pos Control Positive (Positive)
== END 2023-04-03 12:44 | disposition home or self-care (01) ==
LOC: HO.LAB 12:43
PROVIDERS: Visit Provider Advanced Practice Midwife
DX: Z01.419 Encounter for gynecological examination (general) (routine) without abnormal findings (principal); Z20.2 Contact with and (suspected) exposure to infections with a predominantly sexual mode of transmission
CPT/HCPCS: 0353U; 81003; 87480; 87510; 87660

== ENCOUNTER 2023-05-17 07:36 | Outpatient (AMB) | payer OTHER, SELFPAY ==
--- NOTE | 2023-05-17 07:39 | MHC.OFFVIS ---
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 She admits to missing a dose of her control, and also recent Lipo surgery, and COVID infection. She denies any pelvic pain, vaginal odors, itching or dysuria. She recently we can build a relationship with her -after separation. Currently small amount of bleeding. She denies any lightheadedness, dizziness, shortness of breath, reports some fatigue unsure if it is from her recent COVID infection. [facility] Medical History BV (bacterial vaginosis) Abnormal Pap smear of cervix Surgical History H/O LEEP Hx of section Family History Maternal Aunt History of breast cancer Sister Diabetes Maternal Grandfather Diabetes Maternal Grandmother Diabetes Social History Household Members: Children Housing: House Alcohol intake: current Alcohol intake frequency: a few times a month Patient Tobacco Use Status: Never used Tobacco Current occupational status: employed Current occupation: [employer] Sexual orientation: Straight/Heterosexual Gender identity: Female Female Reproductive History Menstrual Age of Menarche: 10 Date of last menstrual period: 04/14/23 Review of Systems Const All systems reviewed & are unremarkable except as noted in HPI and below Physical Exam Vital Signs: Last Vital Signs BP 110/70 05/17/23 07:42 BMI result Body Mass Index 34.7 Const General: cooperative, healthy appearing and no acute distress Orientation/consciousness: patient oriented x3 GI Inspection: Yes normal to inspection Palpation (GI): Soft to palpation and Other GI palpation findings present (Nontender) Rectal Exam - Female: visual inspection normal General: Yes bladder normal to palpation External Female Exam: normal appearance of the urethra Speculum Exam - Vagina: normal appearance of the vagina, normal palpation and vaginal bleeding Speculum Exam - Cervix: normal appearance of the cervix and normal palpation Bimanual exam- vagina & uterus: normal bimanual exam, normal palpation, uterine size normal, bladder normal to palpation, normal palpation, uterine shape normal and non-tender Bimanual Exam- Adnexa, other: normal adnexae OB/external & speculum: vaginal bleeding Neuro General: patient oriented x3 Results AMB Test Urine AMB Test Urine Negative Last Edit by DENG Balderas on 05/17/23 07:48 Results Reviewed Results Reviewed: Laboratory Last Values [facility]st Clinic Negative 05/17/23 07:45 Assessment & Plan Assessment & Plan (1) Breakthrough bleeding on control pills: Code(s): N92.1 - Excessive and frequent menstruation with irregular cycle Plan Discussed: Factors influencing her bleeding for the last few weeks would include missing control pills, surgery, stressors, infections including COVID. Encouraged to take control pills on time, setting cell phone alert. Observe bleeding pattern for now. Report any significant bleeding. Plan CBC check anemia. Has refills on her control pills until her annual is due in November. Continue taking control as scheduled, report any abnormal changes would require follow-up appointment consider other options for cycle control. She prefers not to have the Mirena due to weight gain in the past. BV and GC chlamydia cultures obtained. All of her questions and concerns were addressed to the best of my ability and shared decision making. She is agreeable to the plan of care. This note is constructed using voice recognition software. While every effort has been made to ensure accuracy, wharf tender helper errors may have been included. Orders: Orders AMB HCG Urine Test Today N92.6 - Irregular menstruation, unspecified Bacterial Vaginosis Panel Today N92.6 - Irregular menstruation, unspecified Complete Blood Count no Diff Today N93.9 - Abnormal uterine and vaginal bleeding, unspecified CT NG by PCR Today Z20.2 - Contact with and (suspected) exposure to infections with a predominantly sexual mode of transmission Coding Level of Care Code Est Pt Level 3 (27128) Diagnoses Breakthrough bleeding on control pills N92.1
[2023-05-17 07:42] VITALS: BP 110/70; BMI 34.7
== END 2023-05-17 08:24 | disposition home or self-care (01) ==
LOC: HO.HWS 07:36
PROVIDERS: PCP Physician Assistant; Visit Provider Advanced Practice Midwife
DX: N92.6 Irregular menstruation, unspecified (principal); N92.1 Excessive and frequent menstruation with irregular cycle
CPT/HCPCS: 99213

== ENCOUNTER 2023-05-17 07:36 | Outpatient (REF) | payer OTHER, SELFPAY ==
[2023-05-18 11:49] LABS: CT PCR NOT DETECTED (Not Detect.); NG PCR NOT DETECTED (Not Detect.)
[2023-05-18 14:21] LABS: BV Int Neg Control Negative (Negative); BV Int Pos Control Positive (Positive)
== END 2023-05-17 07:37 | disposition home or self-care (01) ==
LOC: HO.LAB 07:36
PROVIDERS: PCP Physician Assistant; Visit Provider Advanced Practice Midwife
DX: Z20.2 Contact with and (suspected) exposure to infections with a predominantly sexual mode of transmission (principal); N92.1 Excessive and frequent menstruation with irregular cycle
CPT/HCPCS: 0353U; 81025; 87480; 87510; 87660

== ENCOUNTER 2023-05-17 08:03 | Outpatient (REF) | payer OTHER, SELFPAY | END 2023-05-17 08:04 | disposition home or self-care (01) | LOC: HO.LNP 08:03 | PROVIDERS: Visit Provider Advanced Practice Midwife | DX: Z13.89 Encounter for screening for other disorder (principal) ==

== ENCOUNTER 2023-10-10 20:24 | Emergency (ER) | payer OTHER, SELFPAY | END 2023-10-10 21:53 | disposition left against medical advice (07) | PROVIDERS: Emergency Provider Emergency Medicine; PCP Physician Assistant | DX: S69.91XA Unspecified injury of right wrist, hand and finger(s), initial encounter (principal); X58.XXXA Exposure to other specified factors, initial encounter; Y93.9 Activity, unspecified; Y92.9 Unspecified place or not applicable; Y99.9 Unspecified external cause status; Z53.21 Procedure and treatment not carried out due to patient leaving prior to being seen by health care provider ==

== ENCOUNTER 2023-12-03 11:50 | Outpatient (REF) | payer OTHER, SELFPAY | END 2023-12-03 11:51 | disposition home or self-care (01) | LOC: HO.LNP 11:50 | PROVIDERS: PCP Physician Assistant; Visit Provider Obstetrics & Gynecology | DX: Z13.89 Encounter for screening for other disorder (principal) ==

== ENCOUNTER 2023-12-03 11:50 | Outpatient (AMB) | payer OTHER, SELFPAY ==
[2023-12-03 11:54] VITALS: BMI 34.5
--- NOTE | 2023-12-03 11:54 | MHC.OFFVIS ---
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 [facility] Medical History BV (bacterial vaginosis) Abnormal Pap smear of cervix Surgical History H/O LEEP Hx of section Family History Maternal Aunt History of breast cancer Sister Diabetes Maternal Grandfather Diabetes Maternal Grandmother Diabetes Social History Household Members: Children Housing: House Alcohol intake: current Alcohol intake frequency: a few times a month Patient Tobacco Use Status: Never used Tobacco Current occupational status: employed Current occupation: [employer] Sexual orientation: Straight/Heterosexual Gender identity: Female Female Reproductive History Menstrual Age of Menarche: 10 Review of Systems Const All systems reviewed & are unremarkable except as noted in HPI and below Physical Exam Vital Signs: BMI result Body Mass Index 34.5 General: Yes no CVA tenderness External Female Exam: normal external appearance and normal appearance of the urethra Speculum Exam - Vagina: normal appearance of the vagina, normal palpation, no lesions and no masses Speculum Exam - Cervix: normal appearance of the cervix, normal palpation, no lesions, no masses and nontender Bimanual exam- vagina & uterus: normal bimanual exam, normal palpation, uterine size normal, normal palpation, uterine shape normal, No Cervical tenderness present and non-tender Bimanual Exam- Adnexa, other: normal adnexae Back/Spine/Pelvis Back: no CVA tenderness Assessment & Plan Assessment & Plan (1) Screen for STD (sexually transmitted disease): Code(s): Z11.3 - Encounter for screening for infections with a predominantly sexual mode of transmission Category: Medical Plan: STD screening tests done includes: BV panel for trichomonas, GC/CT will send patient for serology std screening for HIV, RPR, Hep b s Ag, HepC Ab. Instructions given the patient to schedule a follow-up appointment for repeat serology screen in 6 months for possible false negatives. Orders: Orders Hepatitis B Surface Antigen Today Z20.2 - Contact with and (suspected) exposure to infections with a predominantly sexual mode of transmission HIV Ab/Ag Today Z20.2 - Contact with and (suspected) exposure to infections with a predominantly sexual mode of transmission Syphilis Screen Today Z20.2 - Contact with and (suspected) exposure to infections with a predominantly sexual mode of transmission CT NG by PCR Today A64 - Unspecified sexually transmitted disease Bacterial Vaginosis Panel Today A64 - Unspecified sexually transmitted disease Hepatitis C Antibody Today Z20.2 - Contact with and (suspected) exposure to infections with a predominantly sexual mode of transmission Coding Level of Care Code Est Pt Level 3 (26007) Diagnoses Screen for STD (sexually transmitted disease) Z11.3
== END 2023-12-03 12:50 | disposition home or self-care (01) ==
LOC: HO.HWS 11:50
PROVIDERS: PCP Physician Assistant; Visit Provider Obstetrics & Gynecology
DX: Z11.3 Encounter for screening for infections with a predominantly sexual mode of transmission (principal)
CPT/HCPCS: 99213

== ENCOUNTER 2023-12-03 12:08 | Outpatient (REF) | payer OTHER, SELFPAY ==
[2023-12-03 13:11] LABS: HBsAGNum1 0.27 S/CO (0.00-0.99); HIV AB/AG Nonreactive (Nonreactive); HIV Num 1 0.04 S/CO (0.00-0.99); Hepatitis B Surface Antigen Negative (Negative); ~HepC Num1 0.11 S/CO (0.00-0.79); ~Hepatitis C Antibody Nonreactive (Nonreactive)
[2023-12-03 13:18] LABS: Syphilis Screen Nonreactive (Nonreactive)
[2023-12-03 15:20] LABS: Bacterial Vaginosis PCR NEGATIVE (Negative); Candida Group PCR NOT DETECTED (Not Detect); Candida glab krusei PCR NOT DETECTED (Not Detect); Trichomonas vaginalis PCR NOT DETECTED (Not Detect)
[2023-12-03 15:50] LABS: CT PCR NOT DETECTED (Not Detect.); NG PCR NOT DETECTED (Not Detect.)
== END 2023-12-03 12:09 | disposition home or self-care (01) ==
LOC: HO.LAB 12:08
PROVIDERS: Visit Provider Obstetrics & Gynecology
DX: A64 Unspecified sexually transmitted disease (principal); Z20.2 Contact with and (suspected) exposure to infections with a predominantly sexual mode of transmission
CPT/HCPCS: 0352U; 86780; 86803; 87340; 87389; 87491; 87591

== ENCOUNTER 2024-01-31 08:48 | Outpatient (AMB) | payer OTHER, SELFPAY ==
--- NOTE | 2024-01-31 08:55 | A.OFFVIS_ITS ---
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 Doing well with no concerns. She tries to eat healthy and stays active with exercise. She has lost 75 lb and last year. Regular monthly menses, heavy 3/5 to 7 days. Used OCPs in the past but forgot dosing for several days in a row. Currently is not sexually active. She denies vaginal itching and irritation. STI screening offered; she accepts. Denies family history of ovarian or colon cancer. Family history breast cancer-maternal aunt Last pap smear 2022, negative. History of LEEP. Mammogram: 2022. [facility] Medical History BV (bacterial vaginosis) Abnormal Pap smear of cervix Surgical History H/O LEEP Hx of section Family History Maternal Aunt History of breast cancer Sister Diabetes Maternal Grandfather Diabetes Maternal Grandmother Diabetes Social History Household Members: Children Housing: House Alcohol intake: current Alcohol intake frequency: a few times a month Patient Tobacco Use Status: Never used Tobacco Current occupational status: employed Current occupation: [employer] Sexual orientation: Straight/Heterosexual Gender identity: Female Female Reproductive History Menstrual Age of Menarche: 10 Duration of menses: 6-7 days Date of last menstrual period: 01/15/24 Total pregnancies: 4 Full term: 2 Ab induced: 1 Ectopics: 1 Date of last pap smear: 12/08/22 (negative pap smear, negative hpv) Date of Mammogram: 02/27/23 (bi rad- 1) Review of Systems Const All systems reviewed & are unremarkable except as noted in HPI and below Reports as per HPI Eyes Reports no additional complaints ENT Reports no additional complaints Card Reports no additional complaints Resp Reports no additional complaints GI Reports as per [facility] and Reports no additional complaints Reports as per HPI Musc Reports no additional complaints Skin/Breast Reports as per HPI Neuro Reports no additional complaints Psych Reports no additional complaints Endo Reports no additional complaints Arnel/Lymph Reports no additional complaints Aller/Immun Reports no additional complaints Physical Exam Vital Signs: Last Vital Signs BP 124/74 01/31/24 09:02 BMI result Body Mass Index 33.9 Const General: cooperative, healthy appearing, no acute distress, well developed and alert Orientation/consciousness: patient oriented x3 HEENT Head: Yes normal to inspection Eyes General: appearance normal, both eyes and all related structures Neck Neck: Yes normal visual inspection Thyroid: Thyroid normal Chest Chest palpation & inspection: normal inspection of the chest and other (no puckering, dimpling, peau de orange, retraction, discharge, masses) Breast/axilla inspection: normal inspection of the breasts Breast/axilla palpation: normal palpation of the breasts Resp Effort & Inspection: normal respiratory effort GI Inspection: Yes normal to inspection and Yes scar Palpation (GI): Soft to palpation Rectal Exam - Female: deferred General: Yes bladder normal to palpation External Female Exam: normal external appearance and normal appearance of the urethra Speculum Exam - Vagina: normal appearance of the vagina, normal palpation and normal vaginal discharge Speculum Exam - Cervix: normal appearance of the cervix, normal palpation and Other cervical findings present (Bled slightly with Pap, post LEEP appearance) Bimanual exam- vagina & uterus: normal bimanual exam, normal palpation, uterine size normal, bladder normal to palpation, normal palpation and non-tender Bimanual Exam- Adnexa, other: no masses Skin General skin exam: no rashes or lesions noted Rashes: no rashes Neuro General: patient oriented x3 Cognition (Neuro): normal cognition Extrem General: Yes normal to inspection Psych Attitude: cooperative Thought process: Normal thought process present Assessment & Plan Assessment & Plan (1) Encounter for well woman exam with routine gynecological exam: Code(s): Z01.419 - Encounter for gynecological examination (general) (routine) without abnormal findings Category: Medical Plan Discussed: Current recommendations for pap smears per ASCCP guidelines. Pap obtained. Breast awareness and periodic breast exams. Mammogram yearly. Maintain a healthy lifestyle including a well balanced diet and routine exercise. Use condoms for STI and prevention if becomes sexually active. Return to the office if needing control in the future. Patient verbalizes understanding and agrees to the plan of care. She was given opportunity to ask questions and all questions were answered to the best of my ability. 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 This note is constructed using voice recognition software. While every effort has been made to ensure accuracy, heel cutter errors may have been included. Orders: Orders Bacterial Vaginosis Panel Today N92.0 - Excessive and frequent menstruation with regular cycle, Z20.2 - Contact with and (suspected) exposure to infections with a predominantly sexual mode of transmission CT NG by PCR Today N92.0 - Excessive and frequent menstruation with regular cycle, Z20.2 - Contact with and (suspected) exposure to infections with a predominantly sexual mode of transmission HPV High risk Today Z01.419 - Encounter for gynecological examination (general) (routine) without abnormal findings Pap Smear Today Z01.419 - Encounter for gynecological examination (general) (routine) without abnormal findings MM tomosynthesis screening BI Today Z12.31 - Encounter for screening mammogram for malignant neoplasm of breast Coding Level of Care Code Est Pt Prev Care 40-64y(05657) Diagnoses Encounter for well woman exam with routine gynecological exam Z01.419
[2024-01-31 09:02] VITALS: BP 124/74; BMI 33.9
== END 2024-01-31 09:44 | disposition home or self-care (01) ==
LOC: HO.HWS 08:48
PROVIDERS: Visit Provider Advanced Practice Midwife
DX: Z01.419 Encounter for gynecological examination (general) (routine) without abnormal findings (principal)
CPT/HCPCS: 99396

== ENCOUNTER 2024-01-31 08:48 | Outpatient (REF) | payer OTHER, SELFPAY | END 2024-01-31 08:49 | disposition home or self-care (01) | LOC: HO.LAB 08:48 | PROVIDERS: Visit Provider Advanced Practice Midwife | DX: Z13.89 Encounter for screening for other disorder (principal) ==

== ENCOUNTER 2024-01-31 09:39 | Outpatient (REF) | payer OTHER, SELFPAY ==
[2024-01-31 13:35] LABS: HPV 16,18/45 See PAP report
[2024-01-31 14:56] LABS: Bacterial Vaginosis PCR NEGATIVE (Negative); Candida Group PCR NOT DETECTED (Not Detect); Candida glab krusei PCR NOT DETECTED (Not Detect); Trichomonas vaginalis PCR NOT DETECTED (Not Detect)
[2024-01-31 17:18] LABS: CT PCR NOT DETECTED (Not Detect.); NG PCR NOT DETECTED (Not Detect.)
== END 2024-01-31 09:40 | disposition home or self-care (01) ==
LOC: HO.LNP 09:39
PROVIDERS: Visit Provider Advanced Practice Midwife
DX: Z01.419 Encounter for gynecological examination (general) (routine) without abnormal findings (principal); Z20.2 Contact with and (suspected) exposure to infections with a predominantly sexual mode of transmission; N92.0 Excessive and frequent menstruation with regular cycle; Z87.410 Personal history of cervical dysplasia; Z86.19 Personal history of other infectious and parasitic diseases
CPT/HCPCS: 0352U; 87491; 87591; 87624; 88175

== ENCOUNTER 2024-03-04 08:42 | Outpatient (REF) | payer OTHER, SELFPAY | END 2024-03-04 08:43 | disposition home or self-care (01) | LOC: HO.MAMMO 08:42 | PROVIDERS: PCP Physician Assistant Medical; Visit Provider Advanced Practice Midwife | DX: Z12.31 Encounter for screening mammogram for malignant neoplasm of breast (principal) | CPT/HCPCS: 77063; 77067 ==

== ENCOUNTER → 2024-03-04 08:45 | Outpatient (BNV) | payer OTHER, SELFPAY | PROVIDERS: PCP Physician Assistant Medical; Visit Provider Internal Medicine | DX: Z12.31 Encounter for screening mammogram for malignant neoplasm of breast (principal) | CPT/HCPCS: 77063; 77067 ==

== ENCOUNTER 2025-02-12 08:53 | Outpatient (AMB) | payer OTHER, SELFPAY ==
--- OUTSIDE RECORDS SUMMARY | 2024-11-20 03:45 | XMS_ITS ---
Author Organization [facility] [address] Address [address] [place] [address] Care Team Providers Care Dsp Engineer Name Role Phone KOKO, CAREY Unavailable [phone] Encounters Encounter Location Date Provider Diagnosis [facility] [address] [place] [address] 11/20/2024 CAREY SUTHERLAND Plan Of Treatment Next Appt Details Provider Name:CAREY SUTHERLAND, 04/06/2025 01:30:00 PM, [address], [place], [address], Provider Name:CAREY SUTHERLAND, 05/18/2025 09:30:00 AM, [address], [place], [address], Progress Notes * Keily YINDOB:1985 (39 yo F)Acc No.[id number]:11/20/2024 Patient: Eliazar Keily pizarro Provider: John SUTHERLAND PA-C :1985 A ge:39 Y S ex:Female Date:11/20/2024 Address:[id number] * Electronic signature of MARY SUTHERLAND PA-C on 02/12/2025 at 10:40 AM EST Sign off status: Pending * Provider: John SUTHERLAND PA-C Date: 0 11/20/2024 Generated for Bala jimenez/Kathleen/eTransmitting on: 1 04/14/2024 10:40 AM EST
--- OUTSIDE RECORDS SUMMARY | 2025-02-09 06:30 | XMS_ITS ---
Author Organization [facility] Address [address] [place] [address] Care Team Providers Care Improvement Director Name Role Phone CAREY SUTHERLAND Unavailable [phone] Allergies No Known Allergies REASON FOR VISIT pt here for a wt mgmt f/u, seca done Medications Medication SIG (Take, Route, Frequency, Duration) Notes Start Date End Date Status FLUoxetine HCl 10 MG Capsule 1 capsule x 1 week, then 2 cap daily Orally Once a day; Duration: 30 days 02/09/2025 Active Zepbound 10 MG/0.5ML Solution Auto-injector Inject 10mg Subcutaneous weekly; Duration: 30 days 02/09/2025 Active Wegovy 2.4 MG/0.75ML Solution Auto-injector 0.75 mL Subcutaneous weekly; Duration: 30 days 12/29/2024 Active Social History Tobacco Use: Social History Observation Description Date Details (start date - stop date) Never Smoker NA - NA Social History Tobacco Use: Social Info Question Answer Notes Tobacco Use/Smoking Are you a nonsmoker Section Notes: 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 Vital Signs Blood pressure systolic 114 mm Hg 02/10/20 25 Blood pressure diastolic 72 mm Hg 025 Heart Rate 80 /min 02/09/2025 Height 64 in 02/09/2025 Weight 216.4 lbs 02/09/2025 BMI 37.14 kg/m2 02/09/2025 Oximetry 98 % 02/09/2025 Encounters Encounter Location Date Provider Diagnosis [facility] [address] [place] [address] 02/09/2025 CAREY SUTHERLAND Obesity (BMI 30-39.9 ) E66.9 ; BMI 37.0-37.9, adult Z68.37 ; Anxiety F41.9 and Encounter for examination of blood pressure with abnormal findings Z01.31 Assessments Encounter Date Diagnosis (ICD Code) Assessment Notes Treatment Notes Treatment Clinical Notes Section Notes 02/09/2025 Obesity (BMI 30-39.9) (ICD-10 - E66.9) Keily is a 39-year-old female that presents for weight management follow-up. Reviewed [facility] holistic and medical approach to weight loss with emphasis on lifestyle modification. #Weight gain (11/15-12/17 taken from notes of Lucy Sutherland PA-C) 10/24/2022: Weight 225.5, BMI 38.7. Patient states that she followed with Dr. Allan Saucedo, and he started on compounded semaglutide in April, and she is up to 1 mg. She states that she gets it for $320 a month. Has lost 45 pounds since April but would like to come to us to see if she can get medications through health insurance. Patient states that she took her last dose on Sunday. She is scheduled for weight management consult next week. Did discuss that she can get compounded semaglutide this Sunday, she will go to the [place] office this is more convenient for her for the nursing visit, and follow-up next week for consult. Did discuss option such as phentermine versus Saxenda or Wegovy when it becomes available again this fall. 10/30/2022: Weight 223 pounds, BMI 38.27. Patient was seen for new patient visit last week. Has been taking compounded semaglutide through [facility] since March and has lost 40 pounds, but is interested in following with us to get a medication through insurance. Has been taking compounded semaglutide 1 mg, and recently had a dose last Sunday. She is interested in a medication. Did discuss Wegovy 1.7 mg which we will send to pharmacy. Patient does qualify. Continue to educate on the importance of lifestyle as well 12/14/2022: Weight 219.4 pounds, BMI 37.66. Patient congratulated on effort. Is having successful weight loss. Patient states that she is not noticing significant appetite suppression on the Wegovy 1.7 but will not increase at this time due to risk of plateauing too quickly at 2.4. She is understanding. She is also requesting a 3-month supply of the medication, but educated that that is not something that we do because we want to see patients once a month for accountability and healthy/sustainab le weight loss. Patient is understanding. We will get on body composition scale next visit.Educated on the importance of lifestyle modifications in conjunction with medication for healthy sustainable weight loss. 01/15/2023: Weight 213.5 pounds, BMI 36.64 patient has been doing very well, continuing to lose weight. Body composition scan reviewed today with positive changes. Patient taking Wegovy 1.7 mg with compliance, without any side effects. Patient is pleased with progress overall. Does admit to some life stressors, but wants to manage it with lifestyle. We will continue Wegovy 1.7 mg. 02/12/2023: Weight 216.6, BMI 37.18. Patient has gained weight since last visit. Patient expresses frustration as she has been very stressed with work, and family concerns at home. Has not been eating as well, and not been exercising as much so we are seeing weight gain. Getting back on track, will continue with Wegovy 1.7. 05/21/2023: Weight 209, BMI 35.87. Patient congratulated on effort, continue to lose slow, steady weight, showing 3 pounds of fat loss, 3 pounds of muscle loss on body scan. Patient states she is not exercising at all. States that it is very stressful for her. Set a goal of 60 minutes/week, and will slowly start increasing as she was running 3-4 times per week and feeling good with that regimen but it does not sustainable at this time. Continue with Wegovy 1.7, focus on more exercise. 07/16/23: BMI 35, weight 209 lbs. Continue Wegovy 1.7 mg subcu weekly. PA approved. Starting to go to the gym. Continue increasing protein and trying to eat earlier in day. Increase water intake to minimum 80 oz/day. 10/15/23: BMI 36, Weight 212 lb. Increase Wegovy 2.4 mg subcu weekly. Consider add on of Wellbutrin. Needs R hand x-ray to r/o schaphoid fracture. 12/10/23: BMI 35, Weight 206. Continue Wegovy 2.4 mg subcu weekly 04/15/2024: Weight: 213, BMI: 36.6. SECA reviewed. Patient encouraged to continue interval training. Discussed the importance of adequate nutrition in terms of calorie/protein intake in the setting of GLP-1 induced appetite suppression. Patient encouraged to eat small meals regularly with protein intake goal of 80 g/day. Plan to increase dose of Zepbound to 10 mg SC weekly and follow-up in 4 to 6 weeks. 06/10/24: BMI 35, weight 207. Continue Zepbound 10 mg subcu weekly. needs to get at least 80-100 grams of protein a day. Methods discussed on how to increase protein. 08/04/24: BMI 35, Weight: 205 lb. Increase to Zepbound 10 mg subcu weekly. Increase protein. Tolerating well. Consider increasing to 12.5 mg until next visit. 09/22/24: BMI 35, Weight 204 pounds. Patient will switch from Zepbound to Wegovy. Patient Wegovy 1 mg subcu weekly, then will taper up from there. We will consider adding Contrave to next visit. 12/29/24: BMI 36, weight 210. Patient is on Wegovy, will increase to 2.4 mg subcu weekly. Overall tolerating well. 02/09/2025. BMI 36, weight 215. Patient is on Wegovy, does not feel like it is stopped helping as much is Zepbound. Patient cannot afford [id number] cost Zepbound. We discussed adding topiramate. Patient wants to wait till the new year, she believes her insurance plan is changing. All questions answered to the patients satisfaction. Patient demonstrates understanding of diagnosis and treatments discussed. Follow-up at next scheduled appointment, sooner should any questions/concern s arise. Case discussed with collaborating physician Ginny Alvarez who has reviewed the assessment/plan. Chart, medications, labs, and vital signs reviewed. Dictation completed with the use of [employer]ule voice recognition software, prone to medical misidentification s and grammatical errors. All errors are unintentional. Although the practitioner does try to identify and correct errors, some may be present. Please do not hesitate to contact the practitioner for clarification. Total time spent was 30 minutes with >50% on coordination of care and patient education. 02/09/2025 BMI 37.0-37.9, adult (ICD-10 - Z68.37) Keily is a 39-year-old female that presents for weight management follow-up. Reviewed [facility] holistic and medical approach to weight loss with emphasis on lifestyle modification. #Weight gain (11/15-12/17 taken from notes of Lucy Sutherland PA-C) 10/24/2022: Weight 225.5, BMI 38.7. Patient states that she followed with Dr. Allan Saucedo, and he started on compounded semaglutide in April, and she is up to 1 mg. She states that she gets it for $320 a month. Has lost 45 pounds since April but would like to come to us to see if she can get medications through health insurance. Patient states that she took her last dose on Sunday. She is scheduled for weight management consult next week. Did discuss that she can get compounded semaglutide this Sunday, she will go to the [place] office this is more convenient for her for the nursing visit, and follow-up next week for consult. Did discuss option such as phentermine versus Saxenda or Wegovy when it becomes available again this fall. 10/30/2022: Weight 223 pounds, BMI 38.27. Patient was seen for new patient visit last week. Has been taking compounded semaglutide through [facility] since March and has lost 40 pounds, but is interested in following with us to get a medication through insurance. Has been taking compounded semaglutide 1 mg, and recently had a dose last Sunday. She is interested in a medication. Did discuss Wegovy 1.7 mg which we will send to pharmacy. Patient does qualify. Continue to educate on the importance of lifestyle as well 12/14/2022: Weight 219.4 pounds, BMI 37.66. Patient congratulated on effort. Is having successful weight loss. Patient states that she is not noticing significant appetite suppression on the Wegovy 1.7 but will not increase at this time due to risk of plateauing too quickly at 2.4. She is understanding. She is also requesting a 3-month supply of the medication, but educated that that is not something that we do because we want to see patients once a month for accountability and healthy/sustainab le weight loss. Patient is understanding. We will get on body composition scale next visit.Educated on the importance of lifestyle modifications in conjunction with medication for healthy sustainable weight loss. 01/15/2023: Weight 213.5 pounds, BMI 36.64 patient has been doing very well, continuing to lose weight. Body composition scan reviewed today with positive changes. Patient taking Wegovy 1.7 mg with compliance, without any side effects. Patient is pleased with progress overall. Does admit to some life stressors, but wants to manage it with lifestyle. We will continue Wegovy 1.7 mg. 02/12/2023: Weight 216.6, BMI 37.18. Patient has gained weight since last visit. Patient expresses frustration as she has been very stressed with work, and family concerns at home. Has not been eating as well, and not been exercising as much so we are seeing weight gain. Getting back on track, will continue with Wegovy 1.7. 05/21/2023: Weight 209, BMI 35.87. Patient congratulated on effort, continue to lose slow, steady weight, showing 3 pounds of fat loss, 3 pounds of muscle loss on body scan. Patient states she is not exercising at all. States that it is very stressful for her. Set a goal of 60 minutes/week, and will slowly start increasing as she was running 3-4 times per week and feeling good with that regimen but it does not sustainable at this time. Continue with Wegovy 1.7, focus on more exercise. 07/16/23: BMI 35, weight 209 lbs. Continue Wegovy 1.7 mg subcu weekly. PA approved. Starting to go to the gym. Continue increasing protein and trying to eat earlier in day. Increase water intake to minimum 80 oz/day. 10/15/23: BMI 36, Weight 212 lb. Increase Wegovy 2.4 mg subcu weekly. Consider add on of Wellbutrin. Needs R hand x-ray to r/o schaphoid fracture. 12/10/23: BMI 35, Weight 206. Continue Wegovy 2.4 mg subcu weekly 04/15/2024: Weight: 213, BMI: 36.6. SECA reviewed. Patient encouraged to continue interval training. Discussed the importance of adequate nutrition in terms of calorie/protein intake in the setting of GLP-1 induced appetite suppression. Patient encouraged to eat small meals regularly with protein intake goal of 80 g/day. Plan to increase dose of Zepbound to 10 mg SC weekly and follow-up in 4 to 6 weeks. 06/10/24: BMI 35, weight 207. Continue Zepbound 10 mg subcu weekly. needs to get at least 80-100 grams of protein a day. Methods discussed on how to increase protein. 08/04/24: BMI 35, Weight: 205 lb. Increase to Zepbound 10 mg subcu weekly. Increase protein. Tolerating well. Consider increasing to 12.5 mg until next visit. 09/22/24: BMI 35, Weight 204 pounds. Patient will switch from Zepbound to Wegovy. Patient Wegovy 1 mg subcu weekly, then will taper up from there. We will consider adding Contrave to next visit. 12/29/24: BMI 36, weight 210. Patient is on Wegovy, will increase to 2.4 mg subcu weekly. Overall tolerating well. 02/09/2025. BMI 36, weight 215. Patient is on Wegovy, does not feel like it is stopped helping as much is Zepbound. Patient cannot afford [id number] cost Zepbound. We discussed adding topiramate. Patient wants to wait till the new year, she believes her insurance plan is changing. All questions answered to the patients satisfaction. Patient demonstrates understanding of diagnosis and treatments discussed. Follow-up at next scheduled appointment, sooner should any questions/concern s arise. Case discussed with collaborating physician Ginny Alvarez who has reviewed the assessment/plan. Chart, medications, labs, and vital signs reviewed. Dictation completed with the use of [employer] voice recognition software, prone to medical misidentification s and grammatical errors. All errors are unintentional. Although the practitioner does try to identify and correct errors, some may be present. Please do not hesitate to contact the practitioner for clarification. Total time spent was 30 minutes with >50% on coordination of care and patient education. 02/09/2025 Anxiety (ICD-10 - F41.9) Keily is a 39-year-old female that presents for weight management follow-up. Reviewed [facility] holistic and medical approach to weight loss with emphasis on lifestyle modification. #Weight gain (11/15-12/17 taken from notes of Lucy Sutherland PA-C) 10/24/2022: Weight 225.5, BMI 38.7. Patient states that she followed with Dr. Allan Saucedo, and he started on compounded semaglutide in April, and she is up to 1 mg. She states that she gets it for $320 a month. Has lost 45 pounds since April but would like to come to us to see if she can get medications through health insurance. Patient states that she took her last dose on Sunday. She is scheduled for weight management consult next week. Did discuss that she can get compounded semaglutide this Sunday, she will go to the [place] office this is more convenient for her for the nursing visit, and follow-up next week for consult. Did discuss option such as phentermine versus Saxenda or Wegovy when it becomes available again this fall. 10/30/2022: Weight 223 pounds, BMI 38.27. Patient was seen for new patient visit last week. Has been taking compounded semaglutide through [facility] since March and has lost 40 pounds, but is interested in following with us to get a medication through insurance. Has been taking compounded semaglutide 1 mg, and recently had a dose last Sunday. She is interested in a medication. Did discuss Wegovy 1.7 mg which we will send to pharmacy. Patient does qualify. Continue to educate on the importance of lifestyle as well 12/14/2022: Weight 219.4 pounds, BMI 37.66. Patient congratulated on effort. Is having successful weight loss. Patient states that she is not noticing significant appetite suppression on the Wegovy 1.7 but will not increase at this time due to risk of plateauing too quickly at 2.4. She is understanding. She is also requesting a 3-month supply of the medication, but educated that that is not something that we do because we want to see patients once a month for accountability and healthy/sustainab le weight loss. Patient is understanding. We will get on body composition scale next visit.Educated on the importance of lifestyle modifications in conjunction with medication for healthy sustainable weight loss. 01/15/2023: Weight 213.5 pounds, BMI 36.64 patient has been doing very well, continuing to lose weight. Body composition scan reviewed today with positive changes. Patient taking Wegovy 1.7 mg with compliance, without any side effects. Patient is pleased with progress overall. Does admit to some life stressors, but wants to manage it with lifestyle. We will continue Wegovy 1.7 mg. 02/12/2023: Weight 216.6, BMI 37.18. Patient has gained weight since last visit. Patient expresses frustration as she has been very stressed with work, and family concerns at home. Has not been eating as well, and not been exercising as much so we are seeing weight gain. Getting back on track, will continue with Wegovy 1.7. 05/21/2023: Weight 209, BMI 35.87. Patient congratulated on effort, continue to lose slow, steady weight, showing 3 pounds of fat loss, 3 pounds of muscle loss on body scan. Patient states she is not exercising at all. States that it is very stressful for her. Set a goal of 60 minutes/week, and will slowly start increasing as she was running 3-4 times per week and feeling good with that regimen but it does not sustainable at this time. Continue with Wegovy 1.7, focus on more exercise. 07/16/23: BMI 35, weight 209 lbs. Continue Wegovy 1.7 mg subcu weekly. PA approved. Starting to go to the gym. Continue increasing protein and trying to eat earlier in day. Increase water intake to minimum 80 oz/day. 10/15/23: BMI 36, Weight 212 lb. Increase Wegovy 2.4 mg subcu weekly. Consider add on of Wellbutrin. Needs R hand x-ray to r/o schaphoid fracture. 12/10/23: BMI 35, Weight 206. Continue Wegovy 2.4 mg subcu weekly 04/15/2024: Weight: 213, BMI: 36.6. SECA reviewed. Patient encouraged to continue interval training. Discussed the importance of adequate nutrition in terms of calorie/protein intake in the setting of GLP-1 induced appetite suppression. Patient encouraged to eat small meals regularly with protein intake goal of 80 g/day. Plan to increase dose of Zepbound to 10 mg SC weekly and follow-up in 4 to 6 weeks. 06/10/24: BMI 35, weight 207. Continue Zepbound 10 mg subcu weekly. needs to get at least 80-100 grams of protein a day. Methods discussed on how to increase protein. 08/04/24: BMI 35, Weight: 205 lb. Increase to Zepbound 10 mg subcu weekly. Increase protein. Tolerating well. Consider increasing to 12.5 mg until next visit. 09/22/24: BMI 35, Weight 204 pounds. Patient will switch from Zepbound to Wegovy. Patient Wegovy 1 mg subcu weekly, then will taper up from there. We will consider adding Contrave to next visit. 12/29/24: BMI 36, weight 210. Patient is on Wegovy, will increase to 2.4 mg subcu weekly. Overall tolerating well. 02/09/2025. BMI 36, weight 215. Patient is on Wegovy, does not feel like it is stopped helping as much is Zepbound. Patient cannot afford [id number] cost Zepbound. We discussed adding topiramate. Patient wants to wait till the new year, she believes her insurance plan is changing. All questions answered to the patients satisfaction. Patient demonstrates understanding of diagnosis and treatments discussed. Follow-up at next scheduled appointment, sooner should any questions/concern s arise. Case discussed with collaborating physician Ginny Alvarez who has reviewed the assessment/plan. Chart, medications, labs, and vital signs reviewed. Dictation completed with the use of [employer] voice recognition software, prone to medical misidentification s and grammatical errors. All errors are unintentional. Although the practitioner does try to identify and correct errors, some may be present. Please do not hesitate to contact the practitioner for clarification. Total time spent was 30 minutes with >50% on coordination of care and patient education. 02/09/2025 Encounter for examination of blood pressure with abnormal findings (ICD-10 - Z01.31) Keily is a 39-year-old female that presents for weight management follow-up. Reviewed [facility] holistic and medical approach to weight loss with emphasis on lifestyle modification. #Weight gain (11/15-12/17 taken from notes of Lucy Sutherland PA-C) 10/24/2022: Weight 225.5, BMI 38.7. Patient states that she followed with Dr. Allan Saucedo, and he started on compounded semaglutide in April, and she is up to 1 mg. She states that she gets it for $320 a month. Has lost 45 pounds since April but would like to come to us to see if she can get medications through health insurance. Patient states that she took her last dose on Sunday. She is scheduled for weight management consult next week. Did discuss that she can get compounded semaglutide this Sunday, she will go to the [place] office this is more convenient for her for the nursing visit, and follow-up next week for consult. Did discuss option such as phentermine versus Saxenda or Wegovy when it becomes available again this fall. 10/30/2022: Weight 223 pounds, BMI 38.27. Patient was seen for new patient visit last week. Has been taking compounded semaglutide through [facility] since March and has lost 40 pounds, but is interested in following with us to get a medication through insurance. Has been taking compounded semaglutide 1 mg, and recently had a dose last Sunday. She is interested in a medication. Did discuss Wegovy 1.7 mg which we will send to pharmacy. Patient does qualify. Continue to educate on the importance of lifestyle as well 12/14/2022: Weight 219.4 pounds, BMI 37.66. Patient congratulated on effort. Is having successful weight loss. Patient states that she is not noticing significant appetite suppression on the Wegovy 1.7 but will not increase at this time due to risk of plateauing too quickly at 2.4. She is understanding. She is also requesting a 3-month supply of the medication, but educated that that is not something that we do because we want to see patients once a month for accountability and healthy/sustainab le weight loss. Patient is understanding. We will get on body composition scale next visit.Educated on the importance of lifestyle modifications in conjunction with medication for healthy sustainable weight loss. 01/15/2023: Weight 213.5 pounds, BMI 36.64 patient has been doing very well, continuing to lose weight. Body composition scan reviewed today with positive changes. Patient taking Wegovy 1.7 mg with compliance, without any side effects. Patient is pleased with progress overall. Does admit to some life stressors, but wants to manage it with lifestyle. We will continue Wegovy 1.7 mg. 02/12/2023: Weight 216.6, BMI 37.18. Patient has gained weight since last visit. Patient expresses frustration as she has been very stressed with work, and family concerns at home. Has not been eating as well, and not been exercising as much so we are seeing weight gain. Getting back on track, will continue with Wegovy 1.7. 05/21/2023: Weight 209, BMI 35.87. Patient congratulated on effort, continue to lose slow, steady weight, showing 3 pounds of fat loss, 3 pounds of muscle loss on body scan. Patient states she is not exercising at all. States that it is very stressful for her. Set a goal of 60 minutes/week, and will slowly start increasing as she was running 3-4 times per week and feeling good with that regimen but it does not sustainable at this time. Continue with Wegovy 1.7, focus on more exercise. 07/16/23: BMI 35, weight 209 lbs. Continue Wegovy 1.7 mg subcu weekly. PA approved. Starting to go to the gym. Continue increasing protein and trying to eat earlier in day. Increase water intake to minimum 80 oz/day. 10/15/23: BMI 36, Weight 212 lb. Increase Wegovy 2.4 mg subcu weekly. Consider add on of Wellbutrin. Needs R hand x-ray to r/o schaphoid fracture. 12/10/23: BMI 35, Weight 206. Continue Wegovy 2.4 mg subcu weekly 04/15/2024: Weight: 213, BMI: 36.6. SECA reviewed. Patient encouraged to continue interval training. Discussed the importance of adequate nutrition in terms of calorie/protein intake in the setting of GLP-1 induced appetite suppression. Patient encouraged to eat small meals regularly with protein intake goal of 80 g/day. Plan to increase dose of Zepbound to 10 mg SC weekly and follow-up in 4 to 6 weeks. 06/10/24: BMI 35, weight 207. Continue Zepbound 10 mg subcu weekly. needs to get at least 80-100 grams of protein a day. Methods discussed on how to increase protein. 08/04/24: BMI 35, Weight: 205 lb. Increase to Zepbound 10 mg subcu weekly. Increase protein. Tolerating well. Consider increasing to 12.5 mg until next visit. 09/22/24: BMI 35, Weight 204 pounds. Patient will switch from Zepbound to Wegovy. Patient Wegovy 1 mg subcu weekly, then will taper up from there. We will consider adding Contrave to next visit. 12/29/24: BMI 36, weight 210. Patient is on Wegovy, will increase to 2.4 mg subcu weekly. Overall tolerating well. 02/09/2025. BMI 36, weight 215. Patient is on Wegovy, does not feel like it is stopped helping as much is Zepbound. Patient cannot afford [id number] cost Zepbound. We discussed adding topiramate. Patient wants to wait till the new year, she believes her insurance plan is changing. All questions answered to the patients satisfaction. Patient demonstrates understanding of diagnosis and treatments discussed. Follow-up at next scheduled appointment, sooner should any questions/concern s arise. Case discussed with collaborating physician Ginny Alvarez who has reviewed the assessment/plan. Chart, medications, labs, and vital signs reviewed. Dictation completed with the use of Fabule voice recognition software, prone to medical misidentification s and grammatical errors. All errors are unintentional. Although the practitioner does try to identify and correct errors, some may be present. Please do not hesitate to contact the practitioner for clarification. Total time spent was 30 minutes with >50% on coordination of care and patient education. Plan Of Treatment Medication Medication Name Sig Start Date Stop Date Notes FLUoxetine HCl 10 MG Capsule 1 capsule x 1 week, then 2 cap daily Orally Once a day; Duration: 30 days 02/09/2025 Zepbound 10 MG/0.5ML Solution Auto-injector Inject 10mg Subcutaneous weekly; Duration: 30 days 02/09/2025 Wegovy 2.4 MG/0.75ML Solution Auto-injector 0.75 mL Subcutaneous weekly; Duration: 30 days 12/29/2024 Pending Test Test Name Order Date LIPID PANEL, STANDARD 02/09/2025 COMPREHENSIVE METABOLIC PANEL 02/09/2025 CBC (INCLUDES DIFF/PLT) 02/09/2025 URINALYSIS, COMPLETE 02/09/2025 HEMOGLOBIN A1c 02/09/2025 VITAMIN B12 02/09/2025 VITAMIN D,25-OH,TOTAL,IA 02/09/2025 TSH+T4F+T3Free 02/09/2025 Next Appt Details Provider Name:CAREY KOKO, 04/06/2025 01:30:00 PM, [address], [place], [address], Provider Name:CAREY SUTHERLAND, 05/18/2025 09:30:00 AM, [address], [place], [id number], History and Physical Notes * Examination Category Sub-Category Detail Notes Category Not es General Examination General: Age appropriate F, well appearing, no acute distress, speaking in full sentences without respiratory compromise. Well groomed, well developed. Skin: Warm, dry and intact. No lesions/rashes. HEENT: Normocephalic/atraumatic. EOMI intact. PERRLA. Nonenlarged Lung: Clear to auscultation bilaterally, no wheezes, rales or rhonchi. No barrel chest. Cardiac: S1 and S2 appreciated. No murmurs/rubs or gallops. DP pulses intact 2+ bilaterally. Abdomen: Soft, nontender, normoactive bowel sounds. No rebound/guarding. No CVA tenderness. Extremities: Bilateral lower extremities with no edema or rubor. MSK: Bilateral upper and lower extremities 5/5 strength with flexion/extension. Addiction Psychiatrist strength 5/5. Neuro: CN II-XI grossly intact. Steady gait with ambulation observed. Psych: Stable mood and affect . Progress Notes * Keily YINDOB:1985 (39 yo F)Acc No.[id number]:02/09/2025 Patient: Keily Scott Provider: John SUTHERLAND PA-C :1985 A ge:39 Y S ex:Female Date:02/09/2025 Address:[address], [id number] Subjective: * Chief Complaints: * 1 . Pt here for a wt mgmt f/u, seca done. * HPI: C onstitutional: Keily is a 39-year-old female that presents for weight management follow-up. Currently on Wegovy 2.4 mg subcu weekly. R eports minimal appetite suppression when compared to previous dose of Wegovy. Denies side effects including nausea, vomiting, or abdominal pain. Experiencing mild constipation, continues to move bowels at least once daily. Averages 1-2 meals/day. 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 Feels water intake is consistent. Continues to exercise daily, doing interval training at the gym. Patient reports that she feels like the Molcure worked better, but her insurance no longer covers it. * ROS: C onstitutional: no weight loss, no fever, no night sweats, no changes in sleep. Cardiovascular: No chest pain, no dyspnea on exertion, no PND, no orthopnea, no irregular pulse, no palpitations, no claudication, no diaphoresis, no claudication. Respiratory: No chronic cough, no hemoptysis, no sputum, no wheezing, no SOB, no pleuritic pain. GI, No diarrhea, no constipation, no blood in the stools, no pain associated with eating, no indigestion, no difficulty swallowing, no appetite change. Genitourinary: No painful urination, no hesitancy, no blood in the urine, no incontinence, no frequency, no urgency, no abnormal discharge. Musculoskeletal: No back pain, no joint pain, no limitations to walking and running, no joint deformity, no joint stiffness, no muscle weakness Integumentary: No new skin rash. No new changes in skin moles, no pruritis, no color change. Neurological: No history of seizures, no memory loss, no language dysfunction, no inability to concentrate, no localized weakness, no sensation loss, no confusion, no dizziness, no tremor, no numbness, no tingling. Psychiatric: no anxiety, no depression, no suicidal thoughts, feels safe at home. Endocrine: No polyuria, no polyphagia, no polydipsia. No heat/cold intolerance, no excesss thirst. Hematological: No easy bruising or bleeding, no lymph node swelling. * Medical History: * Surgical History: * Hospitalization/Major Diagno stic Procedure: * Family History: F ather: alive 63 yrs. M other: alive 63 yrs. 2 brother(s) , 2 sister(s) - healthy. 1 daughter(s) . . F amily History Verified.. Mom: IDDM Maternal aunt: Breast cancer Dad: ESRD, HTN, ETOH Sister: DM II. * Social History: T obacco Use: T obacco Use/Smoking A re you a n onsmoker. Social History Verified. 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 * Medications: T aking Wegovy 2.4 MG/0.75ML Solution Auto-injector 0.75 mL Subcutaneous weekly , Discontinued Wegovy 1.7 MG/0.75ML Solution Auto-injector INJECT 1.7MG SUBCUTANEOUSLY WEEKLY , Medication List reviewed and reconciled with the patient * Allergies: N .K.D.A. Allergies Verified. Objective: * Vitals: H R:80/min, BP:114/72mm Hg, Wt:216.4lbs, BMI:37.14Index, Ht: 64 in, Oxygen sat %:98%. * Examination: G eneral Examination: G eneral: Age appropriate F, well appearing, no acute distress, speaking in full sentences without respiratory compromise. Well groomed, well developed. Skin: Warm, dry and intact. No lesions/rashes. HEENT: Normocephalic/atraumatic. EOMI intact. PERRLA. N onenlarged Lung: Clear to auscultation bilaterally, no wheezes, rales or rhonchi. No barrel chest. Cardiac: S1 and S2 appreciated. No murmurs/rubs or gallops. DP pulses intact 2+ bilaterally. Abdomen: Soft, nontender, normoactive bowel sounds. No rebound/guarding. No CVA tenderness. Extremities: Bilateral lower extremities with no edema or rubor. MSK: Bilateral upper and lower extremities 5/5 strength with flexion/extension. Addiction Psychiatrist strength 5/5. Neuro: CN II-XI grossly intact. Steady gait with ambulation observed. Psych: Stable mood and affect . Assessment: * Assessment: 1. O besity (BMI 30-39.9) - E66.9 (Primary) 2 . B DC 37.0-37.9, adult - Z68.37 3 . A nxiety - F41.9 4 . E ncounter for examination of blood pressure with abnormal findings - Z01.31 Keily is a 39-year-old fema le that presents for weight management follow-up. Reviewed [facility] holistic and medical approach to weight loss with emphasis on lifestyle modification. #Weight gain (11/15-12/17 taken from notes of Lucy Sutherland PA-C) 10/24/2022: Weight 225.5, BMI 38.7. Patient states that she followed with Dr. Allan Saucedo, and he started on compounded semaglutide in April, and she is up to 1 mg. She states that she gets it for $320 a month. Has lost 45 pounds since April but would like to come to us to see if she can get medications through health insurance. Patient states that she took her last dose on Sunday. She is scheduled for weight management consult next week. Did discuss that she can get compounded semaglutide this Sunday, she will go to the [place] office this is more convenient for her for the nursing visit, and follow-up next week for consult. Did discuss option such as phentermine versus Saxenda or Wegovy when it becomes available again this fall. 10/30/2022: Weight 223 pounds, BMI 38.27. Patient was seen for new patient visit last week. Has been taking compounded semaglutide through [facility] since March and has lost 40 pounds, but is interested in following with us to get a medication through insurance. Has been taking compounded semaglutide 1 mg, and recently had a dose last Sunday. She is interested in a medication. Did discuss Wegovy 1.7 mg which we will send to pharmacy. Patient does qualify. Continue to educate on the importance of lifestyle as well 12/14/2022: Weight 219.4 pounds, BMI 37.66. Patient congratulated on effort. Is having successful weight loss. Patient states that she is not noticing significant appetite suppression on the Wegovy 1.7 but will not increase at this time due to risk of plateauing too quickly at 2.4. She is understanding. She is also requesting a 3- month supply of the medication, but educated that that is not something that we do because we want to see patients once a month for accountability and healthy/sustainable weight loss. Patient is understanding. We will get on body composition scale next visit.Educated on the importance of lifestyle modifications in conjunction with medication for healthy sustainable weight loss. 01/15/2023: Weight 213.5 pounds, BMI 36.64 patient has been doing very well, continuing to lose weight. Body composition scan reviewed today with positive changes. Patient taking Wegovy 1.7 mg with compliance, without any side effects. Patient is pleased with progress overall. Does admit to some life stressors, but wants to manage it with lifestyle. We will continue Wegovy 1.7 mg. 02/12/2023: Weight 216.6, BMI 37.18. Patient has gained weight since last visit. Patient expresses frustration as she has been very stressed with work, and family concerns at home. Has not been eating as well, and not been exercising as much so we are seeing weight gain. Getting back on track, will continue with Wegovy 1.7. 05/21/2023: Weight 209, BMI 35.87. Patient congratulated on effort, continue to lose slow, steady weight, showing 3 pounds of fat loss, 3 pounds of muscle loss on body scan. Patient states she is not exercising at all. States that it is very stressful for her. Set a goal of 60 minutes/week, and will slowly start increasing as she was running 3-4 times per week and feeling good with that regimen but it does not sustainable at this time. Continue with Wegovy 1.7, focus on more exercise. 07/16/23: BMI 35, weight 209 lbs. Continue Wegovy 1.7 mg subcu weekly. PA approved. Starting to go to the gym. Continue increasing protein and trying to eat earlier in day. Increase water intake to minimum 80 oz/day. 10/15/23: BMI 36, Weight 212 lb. Increase Wegovy 2.4 mg subcu weekly. Consider add on of Wellbutrin. Needs R hand x-ray to r/o schaphoid fracture. 12/10/23: BMI 35, Weight 206. Continue Wegovy 2.4 mg subcu weekly 04/15/2024: Weight: 213, BMI: 36.6. SECA reviewed. Patient encouraged to continue interval training. Discussed the importance of adequate nutrition in terms of calorie/protein intake in the setting of GLP-1 induced appetite suppression. Patient encouraged to eat small meals regularly with protein intake goal of 80 g/day. Plan to increase dose of Zepbound to 10 mg SC weekly and follow-up in 4 to 6 weeks. 06/10/24: BMI 35, weight 207. Continue Zepbound 10 mg subcu weekly. needs to get at least 80-100 grams of protein a day. Methods discussed on how to increase protein. 08/04/24: BMI 35, Weight: 205 lb. Increase to Zepbound 10 mg subcu weekly. Increase protein. Tolerating well. Consider increasing to 12.5 mg until next visit. 09/22/24: BMI 35, Weight 204 pounds. Patient will switch from Zepbound to Wegovy. Patient Wegovy 1 mg subcu weekly, then will taper up from there. We will consider adding Contrave to next visit. 12/29/24: BMI 36, weight 210. Patient is on Wegovy, will increase to 2.4 mg subcu weekly. Overall tolerating well. 02/09/2025. BMI 36, weight 215. Patient is on Wegovy, does not feel like it is stopped helping as much is Zepbound. Patient cannot afford [id number] cost Zepbound. We discussed adding topiramate. Patient wants to wait till the new year, she believes her insurance plan is changing. All questions answered to the patients satisfaction. Patient demonstrates understanding of diagnosis and treatments discussed. Follow-up at next scheduled appointment, sooner should any questions/concerns arise. Case discussed with collaborating physician Ginny Alvarez who has reviewed the assessment/plan. Chart, medications, labs, and vital signs reviewed. Dictation completed with the use of [employer]ule voice recognition software, prone to medical misidentifications and grammatical errors. All errors are unintentional. Although the practitioner does try to identify and correct errors, some may be present. Please do not hesitate to contact the practitioner for clarification. Total time spent was 30 minutes with >50% on coordination of care and patient education. Plan: * Treatment: * Labs: * L ab: HEMOGLOBIN A1c L ab: VITAMIN D,25-OH,TOTAL,IA L ab: URINALYSIS, COMPLETE L ab: TSH+T4F+T3Free L ab: COMPREHENSIVE METABOLIC PANEL L ab: CBC (INCLUDES DIFF/PLT) L ab: VITAMIN B12 L ab: LIPID PANEL, STANDARD * Procedure Codes: 3 078F DIAST BP < 80 MM HG, 3074F SYST BP LT 130 MM HG Billing Information: * Visit Code: 70542 Office Visit, Est Pt., Level 4. Modifiers: SA * Procedure Codes: 3078F DIAST BP < 80 MM HG. 3074F SYST BP LT 130 MM HG. * Sign off status: Completed true * Provider: John SUTHERLAND PA-C Date: 04/11/2024 Generated for Bala jimenez/Kathleen/eTransmitting on: 04/14/2024 10:39 AM EST
--- NOTE | 2025-02-12 08:57 | MHC.OFFVIS ---
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 Camp Dishwasher concerns: None. Regular monthly menses, started this morning. Currently is sexually active new partner, uses withdrawal method, not interested in control. She denies vaginal itching or irritation. STI screening offered; she accepts. She tries to eat healthy and stays active with exercise. Last pap smear 2023, negative. History of LEEP. Mammogram: 2023. Has scheduled this years exam. Family history of breast cancer. [facility] Medical History BV (bacterial vaginosis) Abnormal Pap smear of cervix Surgical History H/O LEEP Hx of section Family History Maternal Aunt History of breast cancer Sister Diabetes Maternal Grandfather Diabetes Maternal Grandmother Diabetes Social History Household Members: Children Housing: House Alcohol intake: current Alcohol intake frequency: a few times a month Patient Tobacco Use Status: Never used Tobacco Current occupational status: employed Current occupation: [employer] Sexual orientation: Straight/Heterosexual Gender identity: Female Female Reproductive History Menstrual Age of Menarche: 10 Date of last menstrual period: 02/12/25 Total pregnancies: 4 Full term: 2 Number of Living Children: 2 Ab induced: 1 Ectopics: 1 Date of last pap smear: 01/31/24 (neg pap and hpv) History of abnormal pap smear: Yes (see intake note) Date of Mammogram: 03/04/24 (Birad 1) Review of Systems Const All systems reviewed & are unremarkable except as noted in HPI and below Reports as per HPI Eyes Reports no additional complaints ENT Reports no additional complaints Card Reports no additional complaints Resp Reports no additional complaints GI Reports as per HPI and Reports no additional complaints Reports as per HPI Musc Reports no additional complaints Skin/Breast Reports as per HPI Neuro Reports no additional complaints Psych Reports no additional complaints Endo Reports no additional complaints Arnel/Lymph Reports no additional complaints Aller/Immun Reports no additional complaints Physical Exam Vital Signs: Last Vital Signs BP 90/62 02/12/25 08:59 BMI result Body Mass Index 34.7 Const General: cooperative, healthy appearing, no acute distress, well developed and alert Orientation/consciousness: patient oriented x3 HEENT Head: Yes normal to inspection Eyes General: appearance normal, both eyes and all related structures Neck Neck: Yes normal visual inspection Thyroid: Thyroid normal Chest Chest palpation & inspection: normal inspection of the chest and other (no puckering, dimpling, peau de orange, retraction, discharge, masses) Breast/axilla inspection: normal inspection of the breasts Breast/axilla palpation: normal palpation of the breasts Resp Effort & Inspection: normal respiratory effort GI Inspection: Yes normal to inspection Palpation (GI): Soft to palpation Rectal Exam - Female: deferred General: Yes bladder normal to palpation External Female Exam: normal external appearance and normal appearance of the urethra Speculum Exam - Vagina: normal appearance of the vagina, normal palpation, normal vaginal discharge and vaginal bleeding Speculum Exam - Cervix: normal appearance of the cervix and normal palpation Bimanual exam- vagina & uterus: normal bimanual exam, normal palpation, uterine size normal, bladder normal to palpation, normal palpation and non-tender Bimanual Exam- Adnexa, other: no masses OB/external & speculum: vaginal bleeding Skin General skin exam: no rashes or lesions noted Rashes: no rashes Neuro General: patient oriented x3 Cognition (Neuro): normal cognition Extrem General: Yes normal to inspection Psych Attitude: cooperative Thought process: Normal thought process present Assessment & Plan Assessment & Plan (1) Encounter for annual routine gynecological examination: Code(s): Z01.419 - Encounter for gynecological examination (general) (routine) without abnormal findings Category: Medical Plan Discussed: Current recommendations for pap smears per ASCCP guidelines. Breast awareness and periodic breast exams. Mammogram yearly. Maintain a healthy lifestyle including a well balanced diet and routine exercise. Patient verbalizes understanding and agrees to the plan of care. She was given opportunity to ask questions and all questions were answered to the best of my ability. RTO in one year for annual signal circuit designer examination. This note is constructed using voice recognition software. While every effort has been made to ensure accuracy, raschel knitting machine operator errors may have been included. Orders: Orders MM tomosynthesis screening BI Today Z12.31 - Encounter for screening mammogram for malignant neoplasm of breast HIV Ab/Ag Today Z20.2 - Contact with and (suspected) exposure to infections with a predominantly sexual mode of transmission Hepatitis C Antibody Reflex Today Z20.2 - Contact with and (suspected) exposure to infections with a predominantly sexual mode of transmission Syphilis Screen Today Z20.2 - Contact with and (suspected) exposure to infections with a predominantly sexual mode of transmission Hepatitis B Core Antibody Today Z20.2 - Contact with and (suspected) exposure to infections with a predominantly sexual mode of transmission Bacterial Vaginosis Panel Today N93.9 - Abnormal uterine and vaginal bleeding, unspecified, Z11.3 - Encounter for screening for infections with a predominantly sexual mode of transmission CT NG by PCR Vag/Cerv Today N93.9 - Abnormal uterine and vaginal bleeding, unspecified, Z11.3 - Encounter for screening for infections with a predominantly sexual mode of transmission Coding Level of Care Code Est Pt Prev Care 40-64y(82714) Diagnoses Encounter for annual routine gynecological examination Z01.419
[2025-02-12 08:59] VITALS: BP 90/62; BMI 34.7
--- OUTSIDE RECORDS SUMMARY | 2025-02-12 10:41 | XMS_ITS | Patient Health Record ---
Author Organization [facility] [address] Address [address] [place] [address] Care Team Providers Care Fire Claims Adjuster Name Role Phone CAREY SUTHERLAND Unavailable [phone] BASIL WINTERS Unavailable [phone] Allergies No Known Allergies Results Component Value Reference Range Flag Notes T3, FREE Reviewed date:04/04/2024 07:54:07 AM Interpretation: Performing Lab:NL2, [employer] [facility] [id number] Nicole Matamoros Notes/Report: FASTING:NO AN UPDATE OR CORRECTION HAS BEEN MADE TO NAME FASTING: NO T3, FREE 3.0 2.3-4.2 pg/mL N TSH Reviewed date:04/04/2024 07:54:07 AM Interpretation: Performing Lab:NL2, [employer] [facility] [id number] Nicole Matamoros Notes/Report: FASTING:NO AN UPDATE OR CORRECTION HAS BEEN MADE TO NAME FASTING: NO TSH 1.96 N Reference Range > or = 20 Years 0.40-4.50 Ranges First trimester 0.26-2.66 Second trimester 0.55-2.73 Third trimester 0.43-2.91 T4, FREE Reviewed date:04/04/2024 07:54:07 AM Interpretation: Performing Lab:NL2, [facility] Nicole Matamoros Notes/Report: FASTING:NO AN UPDATE OR CORRECTION HAS BEEN MADE TO NAME FASTING: NO T4, FREE 1.1 0.8-1.8 ng/dL N HEMOGLOBIN A1c Reviewed date:04/04/2024 07:54:07 AM Interpretation: Performing Lab:NL2, [employer] [facility] [id number] Nicole Matamoros Notes/Report: FASTING:NO AN UPDATE OR CORRECTION HAS BEEN MADE TO NAME FASTING: NO HEMOGLOBIN A1c 4.8 <5.7 % of total Hgb N For the purpose of screening for the presence of diabetes: <5.7% Consistent with the absence of diabetes 5.7-6.4% Consistent with increased risk for diabetes (prediabetes) > or =6.5% Consistent with diabetes This assay result is consistent with a decreased risk of diabetes. Currently, no consensus exists regarding use of hemoglobin A1c for diagnosis of diabetes in children. According to [place] Diabetes Association (ADA) guidelines, hemoglobin A1c <7.0% represents optimal control in non- diabetic patients. Different metrics may apply to specific patient populations. Standards of Medical Care in Diabetes(ADA). URINALYSIS, COMPLETE Reviewed date:04/04/2024 07:52:51 AM Interpretation: Performing Lab:HUMAIRA2, [facility] Nicole Matamoros Notes/Report: FASTING:NO AN UPDATE OR CORRECTION HAS BEEN MADE TO NAME FASTING: NO COLOR DARK YELLOW YELLOW N APPEARANCE CLEAR CLEAR N SPECIFIC GRAVITY 1.027 1.001-1.035 N PH 6.0 5.0-8.0 N GLUCOSE NEGATIVE NEGATIVE N BILIRUBIN NEGATIVE NEGATIVE N KETONES TRACE NEGATIVE A OCCULT BLOOD NEGATIVE NEGATIVE N PROTEIN NEGATIVE NEGATIVE N NITRITE NEGATIVE NEGATIVE N LEUKOCYTE ESTERASE NEGATIVE NEGATIVE N WBC NONE SEEN < OR = 5 /HPF N RBC NONE SEEN < OR = 2 /HPF N SQUAMOUS EPITHELIAL CELLS 10-20 < OR = 5 /HPF A BACTERIA FEW NONE SEEN /HPF A HYALINE CAST 0-5 NONE SEEN /LPF A NOTE This urine was analyzed for the presence of WBC, RBC, bacteria, casts, and other formed elements. Only those elements seen were reported. CBC (INCLUDES DIFF/PLT) Reviewed date:04/04/2024 07:52:43 AM Interpretation: Performing Lab:HUMAIRA2, [facility] Nicole Matamoros Notes/Report: FASTING:NO AN UPDATE OR CORRECTION HAS BEEN MADE TO NAME FASTING: NO WHITE BLOOD CELL COUNT 8.5 3.8-10.8 Thousand/uL N RED BLOOD CELL COUNT 4.71 3.80-5.10 Million/uL N HEMOGLOBIN 13.2 11.7-15.5 g/dL N HEMATOCRIT 40.8 35.0-45.0 % N MCV 86.6 80.0-100.0 fL N MCH 28.0 27.0-33.0 pg N MCHC 32.4 32.0-36.0 g/dL N For adults, a slight decrease in the calculated MCHC value (in the range of 30 to 32 g/dL) is most likely not clinically significant; however, it should be interpreted with caution in correlation with other red cell parameters and the patient's clinical condition. RDW 12.9 11.0-15.0 % N PLATELET COUNT 207 140-400 Thousand/uL N MPV 12.7 7.5-12.5 fL H ABSOLUTE NEUTROPHILS 5457 1331-4294 cells/uL N ABSOLUTE LYMPHOCYTES 2363 850-3900 cells/uL N ABSOLUTE MONOCYTES 510 200-950 cells/uL N ABSOLUTE EOSINOPHILS 119 15-500 cells/uL N ABSOLUTE BASOPHILS 51 0-200 cells/uL N NEUTROPHILS 64.2 N LYMPHOCYTES 27.8 N MONOCYTES 6.0 N EOSINOPHILS 1.4 N BASOPHILS 0.6 N COMPREHENSIVE METABOLIC PANE L Reviewed date:04/07/2024 08:10:45 AM Interpretation: Performing Lab:NL2, [facility] [facility] Nicole Matamoros Notes/Report: FASTING:NO AN UPDATE OR CORRECTION HAS BEEN MADE TO NAME FASTING: NO GLUCOSE 82 65-139 mg/dL N Non-fasting reference interval UREA NITROGEN (BUN) 16 7-25 mg/dL N CREATININE 0.90 0.50-0.99 mg/dL N EGFR 82 > OR = 60 mL/min/1.73m2 N BUN/CREATININE RATIO SEE NOTE: 6-22 (calc) Not Reported: BUN and Creatinine are within reference range. SODIUM 136 135-146 mmol/L N POTASSIUM 4.1 3.5-5.3 mmol/L N CHLORIDE 103 98-110 mmol/L N CARBON DIOXIDE 25 20-32 mmol/L N CALCIUM 9.3 8.6-10.2 mg/dL N PROTEIN, TOTAL 7.6 6.1-8.1 g/dL N ALBUMIN 4.6 3.6-5.1 g/dL N GLOBULIN 3.0 1.9-3.7 g/dL (calc) N ALBUMIN/GLOBULIN RATIO 1.5 1.0-2.5 (calc) N BILIRUBIN, TOTAL 0.6 0.2-1.2 mg/dL N ALKALINE PHOSPHATASE 31 31-125 U/L N AST 16 10-30 U/L N ALT 10 6-29 U/L N IRON, TIBC AND FERRITIN PANE L Reviewed date:04/07/2024 08:10:45 AM Interpretation: Performing Lab:NL2, [employer] [facility] [place] [facility] [place], [place] [id number] Nicole Matamoros Notes/Report: FASTING:NO AN UPDATE OR CORRECTION HAS BEEN MADE TO NAME FASTING: NO IRON, TOTAL 96 40-190 mcg/dL N IRON BINDING CAPACITY 364 250-450 mcg/dL (calc) N % SATURATION 26 16-45 % (calc) N FERRITIN 12 16-232 ng/mL L LIPID PANEL, STANDARD Reviewed date:04/07/2024 08:10:33 AM Interpretation: Performing Lab:NLCorey, [employer] [facility] Nicole Matamoros Notes/Report: FASTING:NO AN UPDATE OR CORRECTION HAS BEEN MADE TO NAME FASTING: NO CHOLESTEROL, TOTAL 228 <200 mg/dL H HDL CHOLESTEROL 52 > OR = 50 mg/dL N TRIGLYCERIDES 68 <150 mg/dL N LDL-CHOLESTEROL 160 H Desirable range <100 mg/dL for primary prevention; <70 mg/dL for patients with CHD or diabetic patients Reference range: <100 with > or = 2 CHD risk factors. LDL-C is now calculated using the Manuel calculation, which is a validated novel method providing better accuracy than the Friedewald equation in the estimation of LDL-C. Ugo WARNER et al. NIKKI. 2013;310(19): 2996-4724 (http://education.Minervax.com/faq/F AQ164) CHOL/HDLC RATIO 4.4 <5.0 (calc) N NON HDL CHOLESTEROL 176 <130 mg/dL (calc) H For patients with diabetes plus 1 major ASCVD risk factor, treating to a non-HDL-C goal of <100 mg/dL (LDL-C of <70 mg/dL) is considered a therapeutic option. Reason For Referral No Information Medications Medication SIG (Take, Route, Frequency, Duration) [...] ETOH: Social Drug: None Two daughters, . 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 self emplooyeed self emplooyeed self emplooyeed self emplooyeed self emplooyeed self emplooyeed Self employed- [employer] Tob: None ETOH: Social Drug: None Two daughters, . Problems Problem Type SNOMED Code ICD Code Onset Dates Problem Status W/U Status Risk Notes Problem Vitamin B>12< deficiency anaemia (75262429) Vitamin B12 deficiency anemia, unspecified (D51.9) Active confirmed Problem Vitamin D deficiency (05881046) Vitamin D deficiency, unspecified (E55.9) Active confirmed Problem Iron deficiency (31070525) Iron deficiency (E61.1) Active confirmed Problem Obesity (137545914) Other obesity (E66.8) Active confirmed Problem Adult health examination (775223141) Encounter for general adult medical examination without abnormal findings (Z00.00) Active confirmed Problem Abnormal blood pressure (92987308) Encounter for examination of blood pressure with abnormal findings (Z01.31) Active confirmed Problem Diabetes mellitus screening (741719602) Encounter for screening for diabetes mellitus (Z13.1) Active confirmed Problem Endocrine/metabol ic screening (549769441) Encounter for screening for other suspected endocrine disorder (Z13.29) Active confirmed Problem Acquired hypothyroidism (428792556) Acquired hypothyroidism (E03.9) Active confirmed Problem Anxiety (61123344) Anxiety (F41.9) Active confirmed Problem Pain (52763268) Pain (R52) Active confirmed Problem Obesity (350066974) Obesity (BMI 30-39.9) (E66.9) Active confirmed Problem Obese class II (534240821489276) BMI 37.0-37.9, adult (Z68.37) Active confirmed Problem Obese class II (079688706924368) BMI 35.0-35.9,adult (Z68.35) Active confirmed Problem Obese class II (469571511410148) BMI 36.0-36.9,adult (Z68.36) Active confirmed Problem Obese class II (532428243112639) BMI 38.0-38.9,adult (Z68.38) Active confirmed Problem Stress (34502744) Stress (F43.9) Active confirm ed Problem Hyperlipidemia (94524910) Atherogenic dyslipidemia (E78.5) Active confirmed Problem Lipid screening (025600966) Lipid screening (Z13.220) Active confirmed Problem Anemia (436177343) Anemia (D64.9) Active confirmed Vital Signs Heart Rate 80 /min 02/09/2025 Oximetry 98 % 02/09/2025 Blood pressure diastolic 72 mm Hg 02/09/2025 Height 64 in 02/09/2025 Blood pressure systolic 114 mm Hg 02/09/2025 Weight 216.4 lbs 02/09/2025 BMI 37.14 kg/m2 02/09/2025 Encounters Encounter Location Date Provider Diagnosis [facility] [address] [place], [place] 02/18/2024 CAREY KOKO Annual physical exam Z00.00 ; Obesity E66.9 and Anemia D64.9 [facility] [address] [address] 04/15/2024 BASIL WINTERS Obesity (BMI 30-39.9 ) E66.9 ; BMI 36.0-36.9,adult Z68.36 and Anxiety F41.[address] [facility] [address] [place], [place] 06/10/2024 CAREY KOKO Obesity (BMI 30-39.9 ) E66.9 ; BMI 36.0-36.9,adult Z68.36 and Anxiety F41.[address] [facility] [address] [place], [place] 08/04/2024 CAREY KOKO Obesity (BMI 30-39.9 ) E66.9 ; BMI 35.0-35.9,adult Z68.35 ; Anxiety F41.9 and Encounter for examination of blood pressure with abnormal findings Z01.[address] [place], [place] 09/22/2024 CAREY KOKO Obesity (BMI 30-39.9 ) E66.9 ; BMI 35.0-35.9,adult Z68.35 ; Anxiety F41.9 and Encounter for examination of blood pressure with abnormal findings Z01.31 [facility] [address] [place], [place] 12/29/2024 CAREY KOKO Obesity (BMI 30-39.9 ) E66.9 ; BMI 35.0-35.9,adult Z68.35 ; Anxiety F41.9 and Encounter for examination of blood pressure with abnormal findings Z01.31 [facility] [address] [place], [place] 02/09/2025 CAREY KOKO Obesity (BMI 30-39.9 ) E66.9 ; BMI 37.0-37.9, adult Z68.37 ; Anxiety F41.9 and Encounter for examination of blood pressure with abnormal findings Z01.[address] [facility] [address] [place] [address] 02/18/2024 CAREY KOKO [facility] [address] [place] [address] 02/18/2024 CAREY KOKO [facility] [address] [address] 03/21/2024 CAREY KOKO [facility] [address] [address] 04/15/2024 CAREY KOKO [facility] [address] [place] [address] 05/09/2024 CAREY KOKO Obesity (BMI 30-39.9 ) E66.9 [facility] [address] [address] 06/11/2024 CAREY KOKO [facility] [address] [address] 07/21/2024 CAREY KOKO Obesity (BMI 30-39.9 ) E66.9 [facility] [address] [place] [address] 08/21/2024 CAREY KOKO Obesity (BMI 30-39.9 ) E66.[address] [facility] [address] [place] [address] 10/29/2024 CAREY KOKO [facility] [address] [place] [address] 11/03/20[address]OKO [facility] [address] [place], [place] 12/17/2024 [address]AREY KOKO [facility] [address] [place] [address] 12/30/[address]OKO [facility] [address] [place], [place] 02/09/2025 CAREY KOOK Obesity (BMI 30-39.9 ) E66.9 Assessments Encounter Date Diagnosis (ICD Code) Assessment Notes Treatment Notes Treatment Clinical Notes Section Notes 02/18/2024 Annual physical exam (ICD-10 - Z00.00) # Obesity. Currently on Wegovy 2.4 mg subcu weekly. Has been on and plateud. Has been part of our program since 10/2022. Will attempt to change from Wegovy to Zepbound 7.5 mg subcu weekly. Pt is exercising. # Dysmenorrhea. Check Iron panel and CBC r/o anemia. OCP was changed by OBGYN # Vaccines: UTD # Screenings: Due for mammogram Patient seen and examined. Comprehensive discussion was done on the following. 1. Nutrition: It is important to follow a healthy diet based on lots of vegetables and legumes and good fat. Avoid processed food and processed carbohydrates. Learn to prepare your own meals. Learn to read labels and avoid high fructose corn syrup, processed chemicals added to increase shelf life and preprepared meals. Avoid fast foods. Learn to eat slowly and plan meals for a week. Try to count calories and be mindful off daily calorie intake. Get into the habit of keeping an eye on your weight by using an appropriate scale. Learn to log exercise and discussed fitness Apps like Pomogatel which can help keep log off calories taken versus calories burned. Local food should be preferred. Discussed Dirty Dozen Versus Clean Fifteen. Discussed healthy supplements like fish oil, Tumeric, Curcumin, Melatonin, Resveratrol, Probiotics, Vitamin-D, Alpha-Lipoic acid, Vitamin-D and coconut oil. 2. It is important to exercise regularly. Is a good habit to walk at least 30-45 minutes a day. Gentle weightlifting with standard precautions to protect the back. Finding activity like cycling or hiking and get into the habit of engaging in it. Stretching before and after the exercises important. It is also important to contact me if there are any problems like shortness of breath, chest pain, back pain and joint or muscle pain associated with the exercise. 3. Discussed age appropriate screening guidelines. Colonoscopy needs to start at age 50 with stool for occult blood as appropriate. There is a new test that can test for genetic abnormalities in the stool sample. This would not replace a colonoscopy but could be used as a screening tool for patients who do not want a colonoscopy. We discussed the importance of early detection of colon cancer. 4. Discussed current guidelines with respect to breast examination, mammogram and pap smear for early detection of breast and cervical cancer. Patient advised to follow up with these appointments. 5. Discussed safe driving and no use of smart phone while driving 6. Age-appropriate immunizations were discussed. A tetanus booster is needed every 10 years. Flu vaccine is recommended every year just before the start of the flu season. Shingles vaccine is recommended after age 50 but not all insurances cover it.Pneumonia vaccine is given after age 65 unless there are certain comorbidities for which it is started earlier. 7. Diagnostic labs were discussed. These could include CBC CMP and lipids with fasting blood glucose and insulin levels. Vitamin D and hemoglobin A1c testing might be appropriate. Case discussed with collaborating physician Yovani Alvarez who reviewed the assessment and plan. Chart, medications, labs, vital signs reviewed. Dictation was accomplished with the use of P[employer]ien voice recognition software, prone to medical misidentifications and grammatical errors. This is unintentional and the practitioner does try to identify and correct these, but some could still be present. Please do not hesitate to contact practitioner for clarification. 02/18/2024 Obesity (ICD-10 - E66.9) # Obesity. Currently on Wegovy 2.4 mg subcu weekly. Has been on and plateud. Has been part of our program since 10/2022. Will attempt to change from Wegovy to Zepbound 7.5 mg subcu weekly. Pt is exercising. # Dysmenorrhea. Check Iron panel and CBC r/o anemia. OCP was changed by OBGYN # Vaccines: UTD # Screenings: Due for mammogram Patient seen and examined. Comprehensive discussion was done on the following. 1. Nutrition: It is important to follow a healthy diet based on lots of vegetables and legumes and good fat. Avoid processed food and processed carbohydrates. Learn to prepare your own meals. Learn to read labels and avoid high fructose corn syrup, processed chemicals added to increase shelf life and preprepared meals. Avoid fast foods. Learn to eat slowly and plan meals for a week. Try to count calories and be mindful off daily calorie intake. Get into the habit of keeping an eye on your weight by using an appropriate scale. Learn to log exercise and discussed fitness Apps like Pomogatel which can help keep log off calories taken versus calories burned. Local food should be preferred. Discussed Dirty Dozen Versus Clean Fifteen. Discussed healthy supplements like fish oil, Tumeric, Curcumin, Melatonin, Resveratrol, Probiotics, Vitamin-D, Alpha-Lipoic acid, Vitamin-D and coconut oil. 2. It is important to exercise regularly. Is a good habit to walk at least 30-45 minutes a day. Gentle weightlifting with standard precautions to protect the back. Finding activity like cycling or hiking and get into the habit of engaging in it. Stretching before and after the exercises important. It is also important to contact me if there are any problems like shortness of breath, chest pain, back pain and joint or muscle pain associated with the exercise. 3. Discussed age appropriate screening guidelines. Colonoscopy needs to start at age 50 with stool for occult blood as appropriate. There is a new test that can test for genetic abnormalities in the stool sample. This would not replace a colonoscopy but could be used as a screening tool for patients who do not want a colonoscopy. We discussed the importance of early detection of colon cancer. 4. Discussed current guidelines with respect to breast examination, mammogram and pap smear for early detection of breast and cervical cancer. Patient advised to follow up with these appointments. 5. Discussed safe driving and no use of smart phone while driving 6. Age-appropriate immunizations were discussed. A tetanus booster is needed every 10 years. Flu vaccine is recommended every year just before the start of the flu season. Shingles vaccine is recommended after age 50 but not all insurances cover it.Pneumonia vaccine is given after age 65 unless there are certain comorbidities for which it is started earlier. 7. Diagnostic labs were discussed. These could include CBC CMP and lipids with fasting blood glucose and insulin levels. Vitamin D and hemoglobin A1c testing might be appropriate. Case discussed with collaborating physician Yovani Alvarez who reviewed the assessment and plan. Chart, medications, labs, vital signs reviewed. Dictation was accomplished with the use of P[employer]ien voice recognition software, prone to medical misidentifications and grammatical errors. This is unintentional and the practitioner does try to identify and correct these, but some could still be present. Please do not hesitate to contact practitioner for clarification. 04/15/2024 Obesity (BMI 30-39.9) (ICD-10 - E66.9) Keily [...] this Sunday, she will go to the [facility] office this is more convenient for her for the nursing visit, and follow-up next week for consult. Did discuss option such as phentermine versus Saxenda or Wegovy when it becomes available again this fall. 10/30/2022: Weight 223 pounds, BMI 38.27. Patient was seen for new patient visit last week. Has been taking compounded semaglutide through [facility] since March and has lost 40 pounds, [...] and follow-up in 4 to 6 weeks. All questions answered to the patients satisfaction. Patient demonstrates understanding of diagnosis and treatments discussed. Follow-up at next scheduled appointment, sooner should any questions/concerns arise. Case discussed with collaborating physician Yovani Alvarez who has reviewed the assessment/plan. Chart, medications, labs, and vital signs reviewed. Dictation completed with the use of P[employer]ien voice recognition software, prone to medical misidentifications and grammatical errors. All errors are unintentional. Although the practitioner does try to identify and correct errors, some may be present. Please do not hesitate to contact the practitioner for clarification. Total time spent was 30 minutes with >50% on coordination of care and patient education. 04/15/2024 BMI 36.0-36.9,adul t (ICD-10 - Z68.36) Keily is a 39-year-old female that presents [...] this Sunday, she will go to the [facility] office this is more convenient for her for the nursing visit, and follow-up next week for consult. Did discuss option such as phentermine versus Saxenda or Wegovy when it becomes available again this fall. 10/30/2022: Weight 223 pounds, BMI 38.27. Patient was seen for new patient visit last week. Has been taking compounded semaglutide through [facility] medicine since March and has lost [...] and follow-up in 4 to 6 weeks. All questions answered to the patients satisfaction. Patient demonstrates understanding of diagnosis and treatments discussed. Follow-up at next scheduled appointment, sooner should any questions/concerns arise. Case discussed with collaborating physician Yovani Alvarez who has reviewed the assessment/plan. Chart, medications, labs, and vital signs reviewed. Dictation completed with the use of P[employer]ien voice recognition software, prone to medical misidentifications and grammatical errors. All errors are unintentional. Although the practitioner does try to identify and correct errors, some may be present. Please do not hesitate to contact the practitioner for clarification. Total time spent was 30 minutes with >50% on coordination of care and patient education. 05/09/2024 Obesity (BMI 30-39.9) (ICD-10 - E66.9) 06/10/2024 Obesity (BMI 30-39.9) (ICD-10 - E66.9) Keily [...] this Sunday, she will go to the [facility] office this is more convenient for her for the nursing visit, and follow-up next week for consult. Did discuss option such as phentermine versus Saxenda or Wegovy when it becomes available again this fall. 10/30/2022: Weight 223 pounds, BMI 38.27. Patient was seen for new patient visit last week. Has been taking compounded semaglutide through [facility] since March and has lost 40 pounds, [...] Methods discussed on how to increase protein. All questions answered to the patients satisfaction. Patient demonstrates understanding of diagnosis and treatments discussed. Follow-up at next scheduled appointment, sooner should any questions/concerns arise. Case discussed with collaborating physician Ginny Alvarez who has reviewed the assessment/plan. Chart, medications, labs, and vital signs reviewed. Dictation completed with the use of Pazien voice recognition software, prone to medical misidentifications and grammatical errors. All errors are unintentional. Although the practitioner does try to identify and correct errors, some may be present. Please do not hesitate to contact the practitioner for clarification. Total time spent was 30 minutes with >50% on coordination of care and patient education. 06/10/2024 BMI 36.0-36.9,adul t (ICD-10 - Z68.36) Keily is a 39-year-old female that presents [...] this Sunday, she will go to the [facility] office this is more convenient for her for the nursing visit, and follow-up next week for consult. Did discuss option such as phentermine versus Saxenda or Wegovy when it becomes available again this fall. 10/30/2022: Weight 223 pounds, BMI 38.27. Patient was seen for new patient visit last week. Has been taking compounded semaglutide through [facility] functional medicine since March and has [...] Methods discussed on how to increase protein. All questions answered to the patients satisfaction. Patient demonstrates understanding of diagnosis and treatments discussed. Follow-up at next scheduled appointment, sooner should any questions/concerns arise. Case discussed with collaborating physician Ginny Alvarez who has reviewed the assessment/plan. Chart, medications, labs, and vital signs reviewed. Dictation completed with the use of [employer] voice recognition software, prone to medical misidentifications and grammatical errors. All errors are unintentional. Although the practitioner does try to identify and correct errors, some may be present. Please do not hesitate to contact the practitioner for clarification. Total time spent was 30 minutes with >50% on coordination of care and patient education. 07/21/2024 Obesity (BMI 30-39.9) (ICD-10 - E66.9) 08/04/2024 Obesity (BMI 30-39.9) (ICD-10 - E66.9) Keily [...] this Sunday, she will go to the [facility] office this is more convenient for her for the nursing visit, and follow-up next week for consult. Did discuss option such as phentermine versus Saxenda or Wegovy when it becomes available again this fall. 10/30/2022: Weight 223 pounds, BMI 38.27. Patient was seen for new patient visit last week. Has been taking compounded semaglutide through [facility] since March and has lost 40 pounds, [...] increasing to 12.5 mg until next visit. All questions answered to the patients satisfaction. Patient demonstrates understanding of diagnosis and treatments discussed. Follow-up at next scheduled appointment, sooner should any questions/concerns arise. Case discussed with collaborating physician Ginny Alvarez who has reviewed the assessment/plan. Chart, medications, labs, and vital signs reviewed. Dictation completed with the use of [employer] voice recognition software, prone to medical misidentifications and grammatical errors. All errors are unintentional. Although the practitioner does try to identify and correct errors, some may be present. Please do not hesitate to contact the practitioner for clarification. Total time spent was 30 minutes with >50% on coordination of care and patient education. 08/04/2024 BMI 35.0-35.9,adul t (ICD-10 - Z68.35) Keily is a 39-year-old female that presents [...] this Sunday, she will go to the [facility] office this is more convenient for her for the nursing visit, and follow-up next week for consult. Did discuss option such as phentermine versus Saxenda or Wegovy when it becomes available again this fall. 10/30/2022: Weight 223 pounds, BMI 38.27. Patient was seen for new patient visit last week. Has been taking compounded semaglutide through [facility] medicine since March and has lost [...] increasing to 12.5 mg until next visit. All questions answered to the patients satisfaction. Patient demonstrates understanding of diagnosis and treatments discussed. Follow-up at next scheduled appointment, sooner should any questions/concerns arise. Case discussed with collaborating physician Ginny Alvarez who has reviewed the assessment/plan. Chart, medications, labs, and vital signs reviewed. Dictation completed with the use of [employer] voice recognition software, prone to medical misidentifications and grammatical errors. All errors are unintentional. Although the practitioner does try to identify and correct errors, some may be present. Please do not hesitate to contact the practitioner for clarification. Total time spent was 30 minutes with >50% on coordination of care and patient education. 08/21/2024 Obesity (BMI 30-39.9) (ICD-10 - E66.9) 09/22/2024 Obesity (BMI 30-39.9) (ICD-10 - E66.9) Keily [...] this Sunday, she will go to the [place] office this is more convenient for her for the nursing visit, and follow-up next week for consult. Did discuss option such as phentermine versus Saxenda or Wegovy when it becomes available again this fall. 10/30/2022: Weight 223 pounds, BMI 38.27. Patient was seen for new patient visit last week. Has been taking compounded semaglutide through [facility] medicine since March and has lost [...] will consider adding Contrave to next visit. All questions answered to the patients satisfaction. Patient demonstrates understanding of diagnosis and treatments discussed. Follow-up at next scheduled appointment, sooner should any questions/concerns arise. Case discussed with collaborating physician Ginny Alvarez who has reviewed the assessment/plan. Chart, medications, labs, and vital signs reviewed. Dictation completed with the use of [employer] voice recognition software, prone to medical misidentifications and grammatical errors. All errors are unintentional. Although the practitioner does try to identify and correct errors, some may be present. Please do not hesitate to contact the practitioner for clarification. Total time spent was 30 minutes with >50% on coordination of care and patient education. 09/22/2024 BMI 35.0-35.9,adul t (ICD-10 - Z68.35) Keily is a 39-year-old female that presents [...] this Sunday, she will go to the [place] office this is more convenient for her for the nursing visit, and follow-up next week for consult. Did discuss option such as phentermine versus Saxenda or Wegovy when it becomes available again this fall. 10/30/2022: Weight 223 pounds, BMI 38.27. Patient was seen for new patient visit last week. Has been taking compounded semaglutide through [facility] since March and has lost 40 pounds, [...] will consider adding Contrave to next visit. All questions answered to the patients satisfaction. Patient demonstrates understanding of diagnosis and treatments discussed. Follow-up at next scheduled appointment, sooner should any questions/concerns arise. Case discussed with collaborating physician Ginny Alvarez who has reviewed the assessment/plan. Chart, medications, labs, and vital signs reviewed. Dictation completed with the use of [employer] voice recognition software, prone to medical misidentifications and grammatical errors. All errors are unintentional. Although the practitioner does try to identify and correct errors, some may be present. Please do not hesitate to contact the practitioner for clarification. Total time spent was 30 minutes with >50% on coordination of care and patient education. 12/29/2024 Obesity (BMI 30-39.9) (ICD-10 - E66.9) Keily [...] this Sunday, she will go to the [place] office this is more convenient for her for the nursing visit, and follow-up next week for consult. Did discuss option such as phentermine versus Saxenda or Wegovy when it becomes available again this fall. 10/30/2022: Weight 223 pounds, BMI 38.27. Patient was seen for new patient visit last week. Has been taking compounded semaglutide through [facility] medicine since March and has lost [...] 2.4 mg subcu weekly. Overall tolerating well. All questions answered to the patients satisfaction. Patient demonstrates understanding of diagnosis and treatments discussed. Follow-up at next scheduled appointment, sooner should any questions/concerns arise. Case discussed with collaborating physician Ginny Alvarez who has reviewed the assessment/plan. Chart, medications, labs, and vital signs reviewed. Dictation completed with the use of [employer] voice recognition software, prone to medical misidentifications and grammatical errors. All errors are unintentional. Although the practitioner does try to identify and correct errors, some may be present. Please do not hesitate to contact the practitioner for clarification. Total time spent was 30 minutes with >50% on coordination of care and patient education. 12/29/2024 BMI 35.0-35.9,adul t (ICD-10 - Z68.35) Keily is a 39-year-old female that presents [...] this Sunday, she will go to the [place] office this is more convenient for her for the nursing visit, and follow-up next week for consult. Did discuss option such as phentermine versus Saxenda or Wegovy when it becomes available again this fall. 10/30/2022: Weight 223 pounds, BMI 38.27. Patient was seen for new patient visit last week. Has been taking compounded semaglutide through [facility] functional medicine since March and has [...] 2.4 mg subcu weekly. Overall tolerating well. All questions answered to the patients satisfaction. Patient demonstrates understanding of diagnosis and treatments discussed. Follow-up at next scheduled appointment, sooner should any questions/concerns arise. Case discussed with collaborating physician Ginny Alvarez who has reviewed the assessment/plan. Chart, medications, labs, and vital signs reviewed. Dictation completed with the use of [employer] voice recognition software, prone to medical misidentifications and grammatical errors. All errors are unintentional. Although the practitioner does try to identify and correct errors, some may be present. Please do not hesitate to contact the practitioner for clarification. Total time spent was 30 minutes with >50% on coordination of care and patient education. 02/09/2025 Obesity (BMI 30-39.9) (ICD-10 - E66.9) [...] this Sunday, she will go to the [facility] office this is more convenient for her for the nursing visit, and follow-up next week for consult. Did discuss option such as phentermine versus Saxenda or Wegovy when it becomes available again this fall. 10/30/2022: Weight 223 pounds, BMI 38.27. Patient was seen for new patient visit last week. Has been taking compounded semaglutide through [facility] since March and has lost 40 pounds, [...] as much is Zepbound. Patient cannot afford [id number] cost Zepbound. We discussed adding topiramate. Patient [...] reviewed. Dictation completed with the use of [employer] voice recognition software, prone to medical misidentifications [...] this Sunday, she will go to the [facility] office this is more convenient for her for the nursing visit, and follow-up next week for consult. Did discuss option such as phentermine versus Saxenda or Wegovy when it becomes available again this fall. 10/30/2022: Weight 223 pounds, BMI 38.27. Patient was seen for new patient visit last week. Has been taking compounded semaglutide through [facility] since March and has lost 40 pounds, [...] as much is Zepbound. Patient cannot afford [id number] cost Zepbound. We discussed adding topiramate. Patient [...] reviewed. Dictation completed with the use of [employer] voice recognition software, prone to medical misidentifications and grammatical errors. All errors are unintentional. Although the practitioner does try to identify and correct errors, some may be present. Please do not hesitate to contact the practitioner for clarification. Total time spent was 30 minutes with >50% on coordination of care and patient education. 02/09/2025 Obesity (BMI 30-39.9) (ICD-10 - E66.9) 12/29/2024 Anxiety (ICD-10 - F41.9) Keily is a [...] this Sunday, she will go to the [facility] office this is more convenient for her for the nursing visit, and follow-up next week for consult. Did discuss option such as phentermine versus Saxenda or Wegovy when it becomes available again this fall. 10/30/2022: Weight 223 pounds, BMI 38.27. Patient was seen for new patient visit last week. Has been taking compounded semaglutide through [facility] since March and has lost 40 pounds, [...] 2.4 mg subcu weekly. Overall tolerating well. All questions answered to the patients satisfaction. Patient demonstrates understanding of diagnosis and treatments discussed. Follow-up at next scheduled appointment, sooner should any questions/concerns arise. Case discussed with collaborating physician Ginny Alvarez who has reviewed the assessment/plan. Chart, medications, labs, and vital signs reviewed. Dictation completed with the use of [employer] voice recognition software, prone to medical misidentifications [...] this Sunday, she will go to the [facility] office this is more convenient for her for the nursing visit, and follow-up next week for consult. Did discuss option such as phentermine versus Saxenda or Wegovy when it becomes available again this fall. 10/30/2022: Weight 223 pounds, BMI 38.27. Patient was seen for new patient visit last week. Has been taking compounded semaglutide through [facility] medicine since March and has lost [...] as much is Zepbound. Patient cannot afford [id number] cost Zepbound. We discussed adding topiramate. Patient [...] reviewed. Dictation completed with the use of [employer] voice recognition software, prone to medical misidentifications and grammatical errors. All errors are unintentional. Although the practitioner does try to identify and correct errors, some may be present. Please do not hesitate to contact the practitioner for clarification. Total time spent was 30 minutes with >50% on coordination of care and patient education. 08/04/2024 Anxiety (ICD-10 - F41.9) Keily is a [...] this Sunday, she will go to the [place] office this is more convenient for her for the nursing visit, and follow-up next week for consult. Did discuss option such as phentermine versus Saxenda or Wegovy when it becomes available again this fall. 10/30/2022: Weight 223 pounds, BMI 38.27. Patient was seen for new patient visit last week. Has been taking compounded semaglutide through [facility] medicine since March and has lost [...] increasing to 12.5 mg until next visit. All questions answered to the patients satisfaction. Patient demonstrates understanding of diagnosis and treatments discussed. Follow-up at next scheduled appointment, sooner should any questions/concerns arise. Case discussed with collaborating physician Ginny Alvarez who has reviewed the assessment/plan. Chart, medications, labs, and vital signs reviewed. Dictation completed with the use of [employer] voice recognition software, prone to medical misidentifications and grammatical errors. All errors are unintentional. Although the practitioner does try to identify and correct errors, some may be present. Please do not hesitate to contact the practitioner for clarification. Total time spent was 30 minutes with >50% on coordination of care and patient education. 09/22/2024 Anxiety (ICD-10 - F41.9) Keily is a [...] this Sunday, she will go to the [place] office this is more convenient for her for the nursing visit, and follow-up next week for consult. Did discuss option such as phentermine versus Saxenda or Wegovy when it becomes available again this fall. 10/30/2022: Weight 223 pounds, BMI 38.27. Patient was seen for new patient visit last week. Has been taking compounded semaglutide through [facility] medicine since March and has lost [...] will consider adding Contrave to next visit. All questions answered to the patients satisfaction. Patient demonstrates understanding of diagnosis and treatments discussed. Follow-up at next scheduled appointment, sooner should any questions/concerns arise. Case discussed with collaborating physician Ginny Alvarez who has reviewed the assessment/plan. Chart, medications, labs, and vital signs reviewed. Dictation completed with the use of [employer] voice recognition software, prone to medical misidentifications and grammatical errors. All errors are unintentional. Although the practitioner does try to identify and correct errors, some may be present. Please do not hesitate to contact the practitioner for clarification. Total time spent was 30 minutes with >50% on coordination of care and patient education. 06/10/2024 Anxiety (ICD-10 - F41.9) Keily is a [...] this Sunday, she will go to the [place] office this is more convenient for her for the nursing visit, and follow-up next week for consult. Did discuss option such as phentermine versus Saxenda or Wegovy when it becomes available again this fall. 10/30/2022: Weight 223 pounds, BMI 38.27. Patient was seen for new patient visit last week. Has been taking compounded semaglutide through [facility] medicine since March and has lost [...] Methods discussed on how to increase protein. All questions answered to the patients satisfaction. Patient demonstrates understanding of diagnosis and treatments discussed. Follow-up at next scheduled appointment, sooner should any questions/concerns arise. Case discussed with collaborating physician Ginny Alvarez who has reviewed the assessment/plan. Chart, medications, labs, and vital signs reviewed. Dictation completed with the use of [employer] voice recognition software, prone to medical misidentifications and grammatical errors. All errors are unintentional. Although the practitioner does try to identify and correct errors, some may be present. Please do not hesitate to contact the practitioner for clarification. Total time spent was 30 minutes with >50% on coordination of care and patient education. 02/18/2024 Anemia (ICD-10 - D64.9) # Obesity. Currently on Wegovy 2.4 mg subcu weekly. Has been on and plateud. Has been part of our program since 10/2022. Will attempt to change from Wegovy to Zepbound 7.5 mg subcu weekly. Pt is exercising. # Dysmenorrhea. Check Iron panel and CBC r/o anemia. OCP was changed by OBGYN # Vaccines: UTD # Screenings: Due for mammogram Patient seen and examined. Comprehensive discussion was done on the following. 1. Nutrition: It is important to follow a healthy diet based on lots of vegetables and legumes and good fat. Avoid processed food and processed carbohydrates. Learn to prepare your own meals. Learn to read labels and avoid high fructose corn syrup, processed chemicals added to increase shelf life and preprepared meals. Avoid fast foods. Learn to eat slowly and plan meals for a week. Try to count calories and be mindful off daily calorie intake. Get into the habit of keeping an eye on your weight by using an appropriate scale. Learn to log exercise and discussed fitness Apps like [employer] which can help keep log off calories taken versus calories burned. Local food should be preferred. Discussed Dirty Dozen Versus Clean Fifteen. Discussed healthy supplements like fish oil, Tumeric, Curcumin, Melatonin, Resveratrol, Probiotics, Vitamin-D, Alpha-Lipoic acid, Vitamin-D and coconut oil. 2. It is important to exercise regularly. Is a good habit to walk at least 30-45 minutes a day. Gentle weightlifting with standard precautions to protect the back. Finding activity like cycling or hiking and get into the habit of engaging in it. Stretching before and after the exercises important. It is also important to contact me if there are any problems like shortness of breath, chest pain, back pain and joint or muscle pain associated with the exercise. 3. Discussed age appropriate screening guidelines. Colonoscopy needs to start at age 50 with stool for occult blood as appropriate. There is a new test that can test for genetic abnormalities in the stool sample. This would not replace a colonoscopy but could be used as a screening tool for patients who do not want a colonoscopy. We discussed the importance of early detection of colon cancer. 4. Discussed current guidelines with respect to breast examination, mammogram and pap smear for early detection of breast and cervical cancer. Patient advised to follow up with these appointments. 5. Discussed safe driving and no use of smart phone while driving 6. Age-appropriate immunizations were discussed. A tetanus booster is needed every 10 years. Flu vaccine is recommended every year just before the start of the flu season. Shingles vaccine is recommended after age 50 but not all insurances cover it.Pneumonia vaccine is given after age 65 unless there are certain comorbidities for which it is started earlier. 7. Diagnostic labs were discussed. These could include CBC CMP and lipids with fasting blood glucose and insulin levels. Vitamin D and hemoglobin A1c testing might be appropriate. Case discussed with collaborating physician Yovani Alvarez who reviewed the assessment and plan. Chart, medications, labs, vital signs reviewed. Dictation was accomplished with the use of [employer] voice recognition software, prone to medical misidentifications and grammatical errors. This is unintentional and the practitioner does try to identify and correct these, but some could still be present. Please do not hesitate to contact practitioner for clarification. 04/15/2024 Anxiety (ICD-10 - F41.9) Keily is a [...] this Sunday, she will go to the [facility] office this is more convenient for her for the nursing visit, and follow-up next week for consult. Did discuss option such as phentermine versus Saxenda or Wegovy when it becomes available again this fall. 10/30/2022: Weight 223 pounds, BMI 38.27. Patient was seen for new patient visit last week. Has been taking compounded semaglutide through [facility] medicine since March and has lost [...] and follow-up in 4 to 6 weeks. All questions answered to the patients satisfaction. Patient demonstrates understanding of diagnosis and treatments discussed. Follow-up at next scheduled appointment, sooner should any questions/concerns arise. Case discussed with collaborating physician Yovani Alvarez who has reviewed the assessment/plan. Chart, medications, labs, and vital signs reviewed. Dictation completed with the use of [employer] voice recognition software, prone to medical misidentifications and grammatical errors. All errors are unintentional. Although the practitioner does try to identify and correct errors, some may be present. Please do not hesitate to contact the practitioner for clarification. Total time spent was 30 minutes with >50% on coordination of care and patient education. 08/04/2024 Encounter for examination of blood pressure with [...] this Sunday, she will go to the [place] office this is more convenient for her for the nursing visit, and follow-up next week for consult. Did discuss option such as phentermine versus Saxenda or Wegovy when it becomes available again this fall. 10/30/2022: Weight 223 pounds, BMI 38.27. Patient was seen for new patient visit last week. Has been taking compounded semaglutide through [facility] since March and has lost 40 pounds, [...] increasing to 12.5 mg until next visit. All questions answered to the patients satisfaction. Patient demonstrates understanding of diagnosis and treatments discussed. Follow-up at next scheduled appointment, sooner should any questions/concerns arise. Case discussed with collaborating physician Ginny Alvarez who has reviewed the assessment/plan. Chart, medications, labs, and vital signs reviewed. Dictation completed with the use of [employer] voice recognition software, prone to medical misidentifications and grammatical errors. All errors are unintentional. Although the practitioner does try to identify and correct errors, some may be present. Please do not hesitate to contact the practitioner for clarification. Total time spent was 30 minutes with >50% on coordination of care and patient education. 12/29/2024 Encounter for examination of blood pressure with [...] this Sunday, she will go to the [facility] office this is more convenient for her for the nursing visit, and follow-up next week for consult. Did discuss option such as phentermine versus Saxenda or Wegovy when it becomes available again this fall. 10/30/2022: Weight 223 pounds, BMI 38.27. Patient was seen for new patient visit last week. Has been taking compounded semaglutide through [facility] functional medicine since March and has [...] 2.4 mg subcu weekly. Overall tolerating well. All questions answered to the patients satisfaction. Patient demonstrates understanding of diagnosis and treatments discussed. Follow-up at next scheduled appointment, sooner should any questions/concerns arise. Case discussed with collaborating physician Ginny Alvarez who has reviewed the assessment/plan. Chart, medications, labs, and vital signs reviewed. Dictation completed with the use of [employer] voice recognition software, prone to medical misidentifications and grammatical errors. All errors are unintentional. Although the practitioner does try to identify and correct errors, some may be present. Please do not hesitate to contact the practitioner for clarification. Total time spent was 30 minutes with >50% on coordination of care and patient education. 09/22/2024 Encounter for examination of blood pressure with [...] this Sunday, she will go to the [place] office this is more convenient for her for the nursing visit, and follow-up next week for consult. Did discuss option such as phentermine versus Saxenda or Wegovy when it becomes available again this fall. 10/30/2022: Weight 223 pounds, BMI 38.27. Patient was seen for new patient visit last week. Has been taking compounded semaglutide through [facility] medicine since March and has lost [...] will consider adding Contrave to next visit. All questions answered to the patients satisfaction. Patient demonstrates understanding of diagnosis and treatments discussed. Follow-up at next scheduled appointment, sooner should any questions/concerns arise. Case discussed with collaborating physician Ginny Alvarez who has reviewed the assessment/plan. Chart, medications, labs, and vital signs reviewed. Dictation completed with the use of Pazien voice recognition software, prone to medical misidentifications [...] this Sunday, she will go to the [place] office this is more convenient for her for the nursing visit, and follow-up next week for consult. Did discuss option such as phentermine versus Saxenda or Wegovy when it becomes available again this fall. 10/30/2022: Weight 223 pounds, BMI 38.27. Patient was seen for new patient visit last week. Has been taking compounded semaglutide through [facility] since March and has lost 40 pounds, [...] as much is Zepbound. Patient cannot afford nzl-mo-ldiqxj cost Zepbound. We discussed adding topiramate. Patient [...] reviewed. Dictation completed with the use of Pazien voice recognition software, prone to medical misidentifications and grammatical errors. All errors are unintentional. Although the practitioner does try to identify and correct errors, some may be present. Please do not hesitate to contact the practitioner for clarification. Total time spent was 30 minutes with >50% on coordination of care and patient education. Plan Of Treatment Pending Test Test Name Order Date X ray : Hand, right 10/15/2023 LIPID PANEL, STANDARD 12/10/2023 LIPID PANEL, STANDARD 02/09/2025 IRON, TIBC AND FERRITIN PANEL 02/18/2024 COMPREHENSIVE METABOLIC PANEL 02/09/2025 COMPREHENSIVE METABOLIC PANEL 12/10/2023 CBC (INCLUDES DIFF/PLT) 12/10/2023 CBC (INCLUDES DIFF/PLT) 02/09/2025 URINALYSIS, COMPLETE 12/10/2023 URINALYSIS, COMPLETE 02/09/2025 HEMOGLOBIN A1c 02/09/2025 HEMOGLOBIN A1c 12/10/2023 VITAMIN B12 02/09/2025 T4, FREE 12/10/2023 TSH 12/10/2023 T3, FREE 12/10/2023 VITAMIN D,25-OH,TOTAL,IA 02/09/2025 TSH+T4F+T3Free 02/09/2025 Next Appt Details Provider Name:CAREY KOKO, 04/06/2025 01:30:00 PM, [address], [place], [phone], Provider Name:CAREY KOKO, 05/18/2025 09:30:00 AM, [address], [place], [address], Insurance Providers Payer Name Payer Address Payer Phone Subscriber Number Group Number Insured Name Patient Relationship to Insured Coverage Start Date Coverage End Date [facility] [address] [place] [address] [id number] Keily Hrenandez Self - patient is the insured 3 Medications Administered Medication Instructions Date of Administration Dosage Notes MICC B12 INJECTION 10/27/2022 MICC B12 INJECTION 11/03/2022 LOT#[id number] Semaglutide 10/27/2022 Semaglutide 11/03/2022 LOT#[id number] Medical (General) History Medical History History ICD Code Obesity (BMI 30-39.9) E66.9 Stress F43.9 Surgical History Surgery Date(Month/Year) section
== END 2025-02-12 09:39 | disposition home or self-care (01) ==
LOC: HO.HWS 08:54
PROVIDERS: Visit Provider Advanced Practice Midwife
DX: Z01.419 Encounter for gynecological examination (general) (routine) without abnormal findings (principal)
CPT/HCPCS: 99396; 99459

== ENCOUNTER 2025-02-12 08:53 | Outpatient (REF) | payer OTHER, SELFPAY ==
[2025-02-12 11:32] LABS: HBc Num1 0.20 S/CO (0.00-0.79); HIV Num 1 0.06 S/CO (0.00-0.99); ~HepC Num1 0.12 S/CO (0.00-0.79); ~Hepatitis C Antibody Nonreactive (Nonreactive)
[2025-02-12 11:33] LABS: Syphilis Screen Nonreactive (Nonreactive)
--- OUTSIDE RECORDS SUMMARY | 2025-02-12 13:15 | XMS_ITS | Encounter Summary ---
Author Organization [facility] Address [address] [place] [address] Care Team Providers Care Rack Puller Name Role Phone Raoul Tran MD Primary Care Provider Dora Mcclain, Pcp Primary Care Provider Raoul Terry MD Unavailable Unavailable Raoul Tran MD Primary Care Provider Avelina Reyes MD Primary Care Prov ider Encounter Details Date Type Department Care Team Description 01/28/2016 [facility] Medical Records [address] [place] [id number] Abstract, Provider Social History Tobacco Use Types Packs/Day Years Used Date Smoking Tobacco: Never Smokeless Tobacco: Never Alcohol Use Standard Drinks/Week Comments Yes 0 (1 standard drink = 0.6 oz pur e alcohol) socially- not with Sex Assigned at Date Recorded Not on file Job Start Date Occupation Industry Not on file Not on file Not on file documented as of this encounter Plan of Treatment Not on file documented as of this encounter Visit Diagnoses Not on filedocumented in this encounter Care Teams Rack Puller Relationship Specialty Start Date End Date Raoul Tran MD PCP - General Internal Medicine 01/28/15 01/30/16 Johny, Pcp PCP - General Internal Medicine 01/31/16 02/07/16 Raoul Tran MD PCP - General Internal Medicine 02/08/16 02/22/22 Avelina Campo MD [address] [place] [id number] PCP - General Internal Medicine 02/23/22 Raoul Tran MD Internal Medicine 01/31/16 documented as of this encounter
--- OUTSIDE RECORDS SUMMARY | 2025-02-12 13:16 | XMS_ITS | Encounter Summary ---
Author Organization [facility] Address [address] [place] [address] Care Team Providers Care Icing Coater Name Role Phone Kaia Mckeon MD Primary Care Provider Raoul Doan MD Primary Care Provider Dora Mcclain, Pcp Primary Care Provider Raoul Terry MD Unavailable Raoul Sullivan MD Primary Care Provider Avelina Reyes MD Primary Care Prov ider Encounter Details Date Type Department Care Team Description 02/23/2013 Walk In Clinic Visit Medical Records [address] [place] [address] Social History Tobacco Use Types Packs/Day Years Used Date Smoking Tobacco: Never Smokeless Tobacco: Never Alcohol Use Standard Drinks/Week Comments Yes 0 (1 standard drink = 0.6 oz pur e alcohol) socially Sex Assigned at Date Recorded Not on file Job Start Date Occupation Industry Not on file Not on file Not on file documented as of this encounter Plan of Treatment Not on file documented as of this encounter Visit Diagnoses Not on filedocumented in this encounter Care Teams Icing Coater Relationship Specialty Start Date End Date Kaia Mckeon MD PCP - General Internal Medicine 03/08/11 01/27/15 Raoul Tran MD PCP - General Internal Medicine 01/28/15 01/30/16 [facility] PCP - General Internal Medicine 01/31/16 02/07/16 Raoul Tran MD PCP - General Internal Medicine 02/08/16 02/22/22 Avelina Campo MD [address] [place] [id number] PCP - General Internal Medicine 02/23/22 Raoul Tran MD Internal Medicine 01/31/16 documented as of this encounter
--- OUTSIDE RECORDS SUMMARY | 2025-02-12 13:16 | XMS_ITS | Encounter Summary ---
Author Organization [facility] Address [address] [place] [address] Care Team Providers Care Occupational Health And Safety Officer Name Role Phone Kaia Mckeon MD Primary Care Provider Raoul Doan MD Primary Care Provider Dora lamas [facility] Primary Care Provider Raoul Terry MD Unavailable Raoul Sullivan MD Primary Care Provider Avelina Reyes MD Primary Care Prov ider Encounter Details Date Type Department Care Team Description 05/12/2013 Telephone OBGYN - [place] [address] Meli Dickey MD Social History Tobacco Use Types Packs/Day Years Used Date Smoking Tobacco: Never Smokeless Tobacco: Never Alcohol Use Standard Drinks/Week Comments Yes 0 (1 standard drink = 0.6 oz pur e alcohol) socially Sex Assigned at Date Recorded Not on file Job Start Date Occupation Industry Not on file Not on file Not on file documented as of this encounter Miscellaneous Notes * Telephone Encounter - Mary Diggs L.P.N. - 05/12/2013 1:13 PM EST Patient states she has a cold and will go to the lab today. JOSE * Telephone Encounter - Meli Dickey MD - 05/12/2013 1:07 PM EST This patient was supposed to have a D#7 quant yesterday but it wasn't drawn. Can we please follow up with her and find out why she didn't have it drawn. documented in this encounter Plan of Treatment Not on file documented as of this encounter Visit Diagnoses Not on filedocumented in this encounter Care Teams Occupational Health And Safety Officer Relationship Specialty Start Date End Date Kaia Mckeon MD PCP - General Internal Medicine 03/08/11 01/27/15 Raoul Tran MD PCP - General Internal Medicine 01/28/15 01/30/16 [facility] PCP - General Internal Medicine 01/31/16 02/07/16 Raoul Tran MD PCP - General Internal Medicine 02/08/16 02/22/22 Avelina Campo MD [address] [place] [id number] PCP - General Internal Medicine 02/23/22 Raoul Tran MD Internal Medicine 01/31/16 documented as of this encounter
--- OUTSIDE RECORDS SUMMARY | 2025-02-12 13:16 | XMS_ITS | Encounter Summary ---
Author Organization [facility] Address [address] [place] [address] Care Team Providers Care Car Wiper Name Role Phone Raoul Tran MD Unavailable Unavailable Raoul Tran MD Primary Care Provider Avelina Reyes MD Primary Care Prov ider Encounter Details Date Type Department Care Team Description 08/30/2020 Operations Forester Report Medical Records [address] [place] [id number] Shakira Guerrero CNM Social History Tobacco Use Types Packs/Day Years [...] on filedocumented in this encounter Care Teams Car Wiper Relationship Specialty Start Date End Date Raoul Tran MD PCP - General Internal Medicine 02/08/16 02/22/22 Avelina Campo MD [address] [place] [address] [id number] PCP - General Internal Medicine 02/23/22 Raoul Tran MD Internal Medicine 01/31/16 documented as of this encounter
--- OUTSIDE RECORDS SUMMARY | 2025-02-12 13:16 | XMS_ITS | Encounter Summary ---
Author Organization [facility] Address [address] [place] [address] Care Team Providers Care Cabin Man Name Role Phone Raoul Tran MD Unavailable Unavailable Raoul Tran MD Primary Care Provider Avelina Reyes MD Primary Care Prov ider Encounter Details Date Type Department Care Team Description 07/11/2019 Hospital Medical Records [address] [place] [address] Javier Ryder Social History Tobacco Use Types Packs/Day Years [...] on filedocumented in this encounter Care Teams Cabin Man Relationship Specialty Start Date End Date Raoul Tran MD PCP - General Internal Medicine 02/08/16 02/22/22 Avelina Campo MD [address] [place] [address] [id number] PCP - General Internal Medicine 02/23/22 Raoul Tran MD Internal Medicine 01/31/16 documented as of this encounter
--- OUTSIDE RECORDS SUMMARY | 2025-02-12 13:17 | XMS_ITS | Encounter Summary ---
Author Organization [facility] Address [address] [place] [address] Care Team Providers Care Wastewater Treatment Operator Name Role Phone Anabella-Amy Kaye MD Primary Care Provider Unavailable Kaia Mckeon MD Primary Care Provider Raoul Doan MD Primary Care Provider Dora Mcclain Pcp Primary Care Provider Raoul Terry MD Unavailable Raoul Sullivan MD Primary Care Provider Avelina Reyes MD [facility] Encounter Details Date Type Department Care Team Description 06/25/2008 Hospital Medical Records [address] [place] [address] Lalo Barrow MD Social History Tobacco Use Types Packs/Day [...] on filedocumented in this encounter Care Teams Wastewater Treatment Operator Relationship Specialty Start Date End Date Amy Kimble MD PCP - General 11/06/0502/23 Kaia Mckeon MD PCP - General Internal Medicine 03/08/11 01/27/15 Raoul Tran MD PCP - General Internal Medicine 01/28/15 01/30/16 [facility], Pcp PCP - General Internal Medicine 01/31/16 02/07/16 Raoul Tran MD PCP - General Internal Medicine 02/08/16 02/22/22 Avelina Campo MD [address] [place] [id number] PCP - General Internal Medicine 02/23/22 Raoul Tran MD Internal Medicine 01/31/16 documented as of this encounter
--- OUTSIDE RECORDS SUMMARY | 2025-02-12 13:17 | XMS_ITS | Encounter Summary ---
Author Organization [facility] Address [address] [place] [address] Care Team Providers Care Pull Socket Assembler Name Role Phone Raoul Tran MD Primary Care Provider Dora Mcclain, Pcp Primary Care Provider Raoul Terry MD Unavailable Unavailable Raoul Tran MD Primary Care Provider Avelina Reyes MD Primary Care Prov ider Encounter Details Date Type Department Care Team Description 07/07/2015 Release of Information Medical Records [address] [place] [id number] Abstract, Provider Social History Tobacco Use Types [...] on filedocumented in this encounter Care Teams Pull Socket Assembler Relationship Specialty Start Date End Date Raoul Tran MD PCP - General Internal Medicine 01/28/15 01/30/16 Johny, Pcp PCP - General Internal Medicine 01/31/16 02/07/16 Raoul Tran MD PCP - General Internal Medicine 02/08/16 02/22/22 Avelina Campo MD [address] [place] [id number] PCP - General Internal Medicine 02/23/22 Raoul Tran MD Internal Medicine 01/31/16 documented as of this encounter
--- OUTSIDE RECORDS SUMMARY | 2025-02-12 13:17 | XMS_ITS | Encounter Summary ---
Author Organization [facility] Address [address] [place] [address] Care Team Providers Care Epic Cupid Analyst Name Role Phone Raoul Tran MD Unavailable Unavailable Avelina Campo MD Primary Care Prov ider Reason for Referral * Radiology Services (Routine) - Closed Specialty Diagnoses / Procedures Referred By Contac t Referred To Contact Radiology Diagnoses Common bile duct dilatation Procedures MRI OF ABDOMEN NO CONTRAST Jayne Domingo MD [address] [place] [address] [facility] [address] Referral ID Status Reason Start Date Expiration Date Visits Re quested Visits Authorized [id number] Closed 07/28/2022 08/27/2022 1 1 Encounter Details Date Type Department Care Team Description 07/28/2022 Orders Only Adult Medicine [address] [address] Jayne Domingo MD [address] [place] [phone] Common bile duct dilatation (Primary Dx) Social History Tobacco Use Types Packs/Day Years Used Date Smoking Tobacco: Never Smokeless Tobacco: Never Alcohol Use Standard Drinks/Week Comments Yes 0 (1 standard drink = 0.6 oz pur e alcohol) socially- not with Sex Assigned at Date Recorded Not on file Job Start Date Occupation Industry Not on file Not on file Not on file COVID-19 Exposure Response Date Recorded In the last 10 days, have yo u been in contact with someone who was confirmed or suspected to have Coronavirus/COVID-19? No / Unsure 07/26/2022 9:28 AM EDT documented as of this encounter Plan of Treatment Not on file documented as of this encounter Results * MRI OF ABDOMEN NO CONTRAST (08/02/2022 9:15 AM EDT) 08/04/2022 11:5 6 AM EDT Impressions HANS GARCIA OTHER EXTERNAL - 08/04/2022 1:15 PM EDT IMPRESSION: Mildly dilated common bile duct with abrupt narrowing distally, unchanged from the CT exam. Otherwise, normal exam. Narrative HANS GARCIA OTHER EXTERNAL - 08/04/2022 1:15 PM EDT MRI OF ABDOMEN NO CONTRAST; MRCP HISTORY: Common bile duct dilated dilatation. Technique: Multiplanar and multi sequential MR imaging of the abdomen without contrast.Routine noncontrast MRCP pulse sequences were also obtained. PRIOR: CT abdomen pelvis 07/26/2022. FINDINGS: The liver has a normal appearance, with no mass lesions seen. No intrahepatic biliary dilatation is seen. No calculi are seen in the gallbladder or within the extra- or intra-hepatic biliary system. The common bile duct measures [8] mm in diameter and demonstrates abrupt tapering distally. The pancreatic duct has a normal course and caliber. The pancreas, spleen, kidneys, and adrenal glands all appear normal. Procedure Note Selam Colón MD - 08/04/2022 MRI OF ABDOMEN NO CONTRAST; MRCP HISTORY: Common bile duct dilated dilatation. Technique: Multiplanar and multi sequential MR imaging of the abdomenwithout contrast.Routine noncontrast MRCP pulse sequences were also obtained. PRIOR: CT abdomen pelvis 07/26/2022. FINDINGS: The liver has a normal appearance, with no mass lesions seen. Nointrahepatic biliary dilatation is seen. No calculi are seen in the gallbladder or within theextra- or intra-hepatic biliary system. The common bile duct measures [8] mm indiameter and demonstrates abrupt tapering distally. The pancreatic duct has a normal course and caliber. The pancreas, spleen, kidneys, and adrenal glands all appear normal. IMPRESSION IMPRESSION: Mildly dilated common bile duct with abrupt narrowing distally, unchangedfrom the CT exam. Otherwise, normal exam. Jayne Domingo MD MRI HANS GARCIA OTHER EXTERNAL documented in this encounter Visit Diagnoses Diagnosis Common bile duct dilatation- Primary Other specified disorders of biliary tract Common bile duct dilatation Other specified disorders of biliary tract documented in this encounter Care Teams Epic Cupid Analyst Relationship Specialty Start Date End Date Avelina Campo MD [address] [place] [id number] PCP - General Internal Medicine 02/23/22 Raoul Tran MD Internal Medicine 01/31/16 documented as of this encounter
--- OUTSIDE RECORDS SUMMARY | 2025-02-12 13:17 | XMS_ITS | Encounter Summary ---
Author Organization [facility] Address [address] [place] [address] Care Team Providers Care An Employee Sponsor Or Advocate And Name Role Phone Raoul Tran MD Unavailable Unavailable Avelina Campo MD Primary Care Prov ider Reason for Referral * Non TAYLOR (Priority) - Authorized/Booked Specialty Diagnoses / Procedures Referred By Reina nathan Referred To Contact Gastroenterology Procedures REFERRAL TO GASTROENTEROLOGY Jayne Domingo MD [address] [place] [address] Gastro [place]/[address] [address] Referral ID Status Reason Start Date Expiration Date V isits Requested Visits Authorized Authorized/B ooked 08/07/2022 08/07/2023 1 1 Encounter Details Date Type Department Care Team Description 08/07/2022 Orders Only Adult Medicine [address] [address] Jayne Domingo MD [address] [place] [id number] Social History Tobacco Use Types Packs/Day Years [...] suspected to have Coronavirus/COVID-19? No / Unsure 08/02/2022 8:24 AM EDT documented as of this encounter Plan of Treatment Not on file documented as of this encounter Visit Diagnoses Not on filedocumented in this encounter Care Teams An Employee Sponsor Or Advocate And Relationship Specialty Start Date End Date Avelina Campo MD [address] [place] [phone] PCP - General Internal Medicine 02/23/22 Raoul Tran MD Internal Medicine 01/31/16 documented as of this encounter
--- OUTSIDE RECORDS SUMMARY | 2025-02-12 13:17 | XMS_ITS | Clinical Summary ---
Author Organization [facility] Address [address] [place] [address] Care Team Providers Care Salesperson Wigs Name Role Phone Raoul Tran MD Unavailable Unavailable Avelina Campo MD Primary Care Prov ider Allergies No known active allergies Medications Medication Sig Dispensed Refills Start Date End Date Status Semaglutide,0.25 or 0.5MG/DOS, 2 MG/1.5ML Solution Pen-injector Inject into the skin. 0 Active polyethylene glycol (COLYTE) 240 g solution Drink 8 oz every 15 mins over 2 sittings as directed. Finish the entire jug. 4000 mL 0 08/11/2022 Active Active Problems Problem Noted Date Lactating mother 06/20/2016 Hyperlipidemia LDL goal <160 02/10/2016 Abnormal Pap smear of cervix 08/17/2015 Overview: 06/2015 ASCUS, positive HRHPV 08/2015 Colpo benign biopsy 09/2016 Positive HRHPV 05/2017 ASC-H 06/2017 Colpo benign biopsy First trimester bleeding 06/10/2015 Ectopic 04/29/2013 Overview: Treated with MTX 04/29/13 Morbid obesity 03/31/2013 Overview: BMI 42.17 on 02/27/13. Allergic rhinitis, cause unspecified Resolved Problems Problem Noted Date Resolved Date Abnormal glucose affecting 12/14/2015 02/08/2016 Previous delivery, antepartum condition or complication 07/16/2015 03/09/2016 Overview: Wants . Records of C/S 06/25/2008 reviewed in [facility], low transverse with two layer closure. Supervision of other normal , antepartu m 07/05/2015 02/08/2016 Overview: Patient and sexual partner deny travelling out of the country during this . Zika assessment form completed and sent to scan. Previous 1. [place] site: [place] 2. Delivery site: [facility] 3. Dating criteria: LMP confirmed by 1st trimester ultrasound 3. Blood type: O+ 4. Genetic screening: Date: Result: 5. GBS: Date: Negative 12/29/17 6. FOB name: Jacobo 7. Plans A. Epidural or other pain management - unknown B. Labor support identified - , mother and sister C. Tdap - Date: 12/28/2015 Flu: declines D. Breast or Bottle feed: breast E. Baby's name - Kiarra F. Circumcision - N/A Supervision of normal first 01/30/2008 08/05/2008 Immunizations Name Administration Dates Next Due COVID-19 (BRUNILDA AND BRUNILDA) 07/03/2020 COVID-19 (Pfizer) 02/06/2021 HPV (Gardasil) 10/11/2007 Hepatitis B-2 dose(11-15yrs) 03/21/2000 Influenza (> 6 Months) 01/19/2010,01/30/2008 Influenza Flu (PT Reported) 01/26/2016 PPD-RBMG 01/11/2001,01/08/2001 Tdap 12/28/2015,01/19/2010 Family History Medical History Relation Name Comments Diabetes Maternal Grandfather aunts,u ncles Diabetes Maternal Grandmother Stroke Maternal Grandmother D AGE 74 other cancer [Other] Maternal Grandmother hyst for cancer, not ovarian Diabetes Mother Hypertension Mother other cancer [Other] Mother hyst fo r cancer, not ovarian Cancer of the Breast Mother's side 2 grea t aunt in her 60's Diabetes Mother's side 3 CA Colon Negative Hx Relation Name Status Comments Brother Alive Daughter Alive age 5 (2013) Father Alive Maternal Grandfather DM Maternal Grandmother stroke Mother Alive Mother's side 1 Mother's side 2 Mother's side 3 Paternal Grandfather Alive Paternal Grandmother Alive Sister 1 Alive full sister Sister 2 Alive half sister Social History Tobacco Use Types Packs/Day Years Used Date Smoking Tobacco: Never Smokeless Tobacco: Never Alcohol Use Standard Drinks/Week Comments Yes 0 (1 standard drink = 0.6 oz pur e alcohol) socially- not with Sex Assigned at Date Recorded Not on file Job Start Date Occupation Industry Not on file Not on file Not on file Last Filed Vital Signs Vital Sign Reading Time Taken Comments Blood Pressure 128/82 08/16/2022 4:02 PM EDT Pulse 76 08/16/2022 4:02 PM EDT Temperature 36.5 C (97.7 F) 08/16/2022 4:02 PM EDT Respiratory Rate 14 08/16/2022 4:02 PM EDT Oxygen Saturation 99% 02/23/2022 1:38 PM EST Inhaled Oxygen Concentration - - Weight 104.3 kg (230 lb) 08/16/2022 4:02 PM EDT Height 165.1 cm (5' 5 ) 08/16/2022 4:02 PM EDT Body Mass Index 38.27 08/16/2022 4:02 PM EDT Plan of Treatment Health Maintenance Due Date Last Done Comments MAMMOGRAM 2023 BMI CHECK/ADVISE 03/26/2024 08/16/2022, , 04/03/2022, Additional history exists BASELINE HEALTH EXAM 40-64 04/04/202404/04, 04/03/2022, 02/09/2016, Additional history exists Covid-19 Vaccine (2022-2 4 season) 2024 02/06/2021, 07/03/2020 INFLUENZA (#1) 2024 01/26/2016 (Exte rnal Completion of Vaccination per patient), 01/26/2016, 01/19/2010, Additional history exists CERVICAL CANCER SCREENING 02/01/20252021 (External Completion), 06/21/2017, 06/20/2016, Additional history exists DTAP/TDAP/TD (3 - Td or Tdap) 12/27/2025 12/28/2015, 01/19/2010 CHOLESTEROL SCREENING 04/04/2027 04/04/2022 , 12/19/2016, 02/09/2016, Additional history exists PNEUMOCOCCAL VACCINE FOR HIG H RISK PATIENTS (#1) 02/25/2048 Care Teams Salesperson Wigs Relationship Specialty Start Date End Date Avelina Campo MD [address] [place] [address] [phone] PCP - General Internal Medicine 02/23/22 Raoul Tran MD Internal Medicine 01/31/16
--- OUTSIDE RECORDS SUMMARY | 2025-02-12 13:17 | XMS_ITS | Encounter Summary ---
Author Organization [facility] Address [address] [place] [address] Care Team Providers Care Structural Engineering Drafting Officer Name Role Phone Anabella-Amy Kaye MD Primary Care Provider Unavailable Kaia Mckeon MD Primary Care Provider Raoul Doan MD Primary Care Provider Faith Reynaga Primary Care Provider Raoul Terry MD, Hyun-Young MD Primary Care Provider Avelina Reyes MD [facility] Prov [facility] Encounter Details Date Type Department Care Team Description 06/23/2008 [facility] Medical Records [address] [place], [place] [id number] [place] [address] Social History Tobacco Use Types Packs/Day Years [...] on filedocumented in this encounter Care Teams Structural Engineering Drafting Officer Relationship Specialty Start Date End Date Amy Kimble MD PCP - General 11/06/0502/23 Kaia Mckeon MD PCP - General Internal Medicine 03/08/11 01/27/15 Raoul Tran MD PCP - General Internal Medicine 01/28/15 01/30/16 [facility], Pcp PCP - General Internal Medicine 01/31/16 02/07/16 Raoul Tran MD PCP - General Internal Medicine 02/08/16 02/22/22 Avelina Campo MD [address] [place] [id number] PCP - General Internal Medicine 02/23/22 Raoul Tran MD Internal Medicine 01/31/16 documented as of this encounter
== END 2025-02-12 08:54 | disposition home or self-care (01) ==
LOC: HO.LAB 08:53
PROVIDERS: PCP Physician Assistant Medical; Visit Provider Advanced Practice Midwife
DX: Z01.419 Encounter for gynecological examination (general) (routine) without abnormal findings (principal); Z01.84 Encounter for antibody response examination; Z11.4 Encounter for screening for human immunodeficiency virus [HIV]
CPT/HCPCS: 36415; 86704; 86780; 86803; 87389

== ENCOUNTER 2025-02-12 09:33 | Outpatient (REF) | payer OTHER, SELFPAY ==
[2025-02-12 16:44] LABS: Bacterial Vaginosis PCR NEGATIVE (Negative); Candida Group PCR NOT DETECTED (Not Detect); Candida glab krusei PCR NOT DETECTED (Not Detect); Trichomonas vaginalis PCR NOT DETECTED (Not Detect)
[2025-02-12 17:15] LABS: CT PCR NOT DETECTED (Not Detect.); NG PCR NOT DETECTED (Not Detect.)
== END 2025-02-12 09:34 | disposition home or self-care (01) ==
LOC: HO.LNP 09:33
PROVIDERS: Visit Provider Advanced Practice Midwife
DX: Z20.2 Contact with and (suspected) exposure to infections with a predominantly sexual mode of transmission (principal); N93.9 Abnormal uterine and vaginal bleeding, unspecified
CPT/HCPCS: 81515; 87491; 87591

== ENCOUNTER → 2025-03-06 08:45 | Outpatient (BNV) | payer OTHER, SELFPAY | PROVIDERS: PCP Physician Assistant Medical; Referring Provider Obstetrics & Gynecology; Visit Provider Internal Medicine | DX: Z12.31 Encounter for screening mammogram for malignant neoplasm of breast (principal) | CPT/HCPCS: 77063; 77067 ==

== ENCOUNTER 2025-03-06 08:49 | Outpatient (REF) | payer OTHER, SELFPAY | END 2025-03-06 08:50 | disposition home or self-care (01) | LOC: HO.MAMMO 08:49 | PROVIDERS: PCP Physician Assistant Medical; Referring Provider Obstetrics & Gynecology; Visit Provider Physician Assistant Medical | DX: Z12.31 Encounter for screening mammogram for malignant neoplasm of breast (principal) | CPT/HCPCS: 77063; 77067 ==